=== PATIENT | male | born 1985 | race Caucasian/White ===

== ENCOUNTER 2019-12-16 20:17 | Inpatient (IN) | payer SELFPAY ==
[2019-12-16 20:26] VITALS: BP 143/110; PULSE 88; RESP 18; TEMP 36.7; O2SAT 98; BMI 22.4
--- NOTE | 2019-12-16 20:43 | ED_ITS ---
HPI - Psych General: Chief Complaint: Psychiatric Symptoms Stated Complaint: SI Time Seen by Provider: 12/16/19 20:35 History of Present Illness: HPI Narrative: Patient comes in with complaints that he try to hang himself this afternoon. His mom stopped him from himself she had noose around his neck but did not complete the task obviously. He has had multiple attempts in the past he says. says he is very depressed. He does ongoing living MD complaint: suicidal ideation and feels depressed Onset (ago): year(s) Duration: constant History of same: Yes Relieving factors: none Context: recent drug abuse (Smokes marijuana daily) Associated psychiatric symptoms: depression Associated symptoms: Reports depression Treatments prior to arrival: none If self harm: admits thoughts of self harm, has plan and has acted on plan Details of plan: Hanging himself with a rope Review of Systems Const: Denies: fever(s), chills or body aches Eyes: Denies: change in vision or blurry vision ENMT: Denies: throat pain or nasal congestion Card: Denies: chest pain or dyspnea on exertion Resp: Denies: dyspnea, productive cough or non-productive cough GI: Denies: abdominal pain, nausea or vomiting : Denies: difficulty urinating Musc: Denies: extremity pain Skin/Breast: Denies: rash Neuro: Denies: headache(s) Psych: Reports: depression and other (Tried to hang himself his afternoon his mom stopped him); Denies: anxiety Layton/Lymph: Denies: easy bruising Physical Exam Const: COMMON NORMALS: no acute distress, average body habitus and patient oriented x3 HENMT: COMMON NORMALS: normocephalic HEAD & SCALP: normal to inspection and normocephalic FACE & SINUS: normal facial exam Eye: COMMON NORMALS: conjunctivae normal GENERAL EYE: appearance normal, both eyes and all related structures CONJUNCTIVA: Yes conjunctivae normal Neck/C-Spine: COMMON NORMALS: no JVD Chest: COMMONS NORMALS: normal inspection of the chest Resp: COMMON NORMALS: normal respiratory effort and clear to auscultation bilaterally AUSCULTATION: clear to auscultation bilaterally Cardio: COMMON NORMALS: no JVD, regular rate and regular rhythm RATE: regular rate RHYTHM: regular rhythm GI: COMMON NORMALS: Normal to inspection, nondistended, normoactive bowel sounds present Extremity: COMMON NORMALS: normal to inspection and full ROM Neuro: COMMON NORMALS: patient oriented x3 Psych: COMMON NORMALS: Normal thought process present, cooperative and speech normal APPEARANCE: Yes grossly normal ATTITUDE: Yes Other attitude/behavior findings present (Psych) (Emotional) ACTIVITY/MOTOR BEHAVIOR: Yes Avoids eye contact (attititude/behavior) SPEECH: Yes normal speech MOOD & AFFECT: Yes depressed mood THOUGHT PROCESS: Normal thought process present MEMORY/COGNITION: Yes memory grossly intact INSIGHT: Good insight present (Psych) Coding Level of Care Code ED Anesthesiology Technologist for Delmis Thompson
[2019-12-16 20:47] LABS: Add Urine Microscopic? NO
[2019-12-16 20:52] LABS: Basophils # 0.1 10^3/uL (0.0-0.1); Basophils % 0.9 %; Eosinophils # 0.3 10^3/uL (0.0-0.8); Eosinophils % 3.5 %; Hematocrit 46.5 % (42.0-52.0); Hemoglobin 15.5 g/dL (11.7-16.6); Lymphocytes # 3.7 10^3/uL (0.8-4.8); Lymphocytes % 48.9 %; Mean Corpuscular HGB Conc 33.3 g/dL (30.0-36.0); Mean Corpuscular Hemoglobin 30.3 pg (28.0-34.0); Mean Corpuscular Volume 90.8 fL (80-94); Mean Platelet Volume 9.2 fL (7.4-10.4); Monocytes # 0.6 10^3/uL (0.2-0.9); Monocytes % 8.5 %; Neutrophils # 2.86 10^3/uL (1.8-7.7); Neutrophils % 38.1 %; Nucleated Red Blood Cells % 0 %; Platelet Count 385 10^3/cmm (130-400); Red Blood Count 5.12 10^6/uL (4.1-5.3); Red Cell Distribution Width 12.8 % (12.1-15.1); White Blood Count 7.5 10^3/uL (4.0-10.0)
[2019-12-16 20:53] LABS: Bilirubin Urine Neg (NEGATIVE); Blood Urine Neg (Negative); Glucose Urine UA Norm (Normal); Ketones Urine Negative (Negative); Leukocyte Esterase Urine Negative (Negative); Nitrate Urine Negative (Negative); Protein Urine Neg (Negative); Specific Gravity, Urine 1.015 (1.005-1.030); Urine Appearance Clear (CLEAR); Urine Color Yellow (Yellow); Urobilinogen Urine Norm (Negative); pH Urine 6 (5-7)
[2019-12-16 20:58] LABS: Amphetamines Screen Urine Positive (Negative); Barbiturates Screen Urine Negative (Negative); Benzodiazepines Screen Urine Positive (Negative); Cocaine Screen Urine Negative (Negative); Opiate Screen Urine Negative (Negative); PCP Screen Urine Negative (Negative); THC Screen Urine Positive (Negative)
[2019-12-16 21:17] LABS: Anion Gap 13.6 (5-19); Blood Urea Nitrogen 7 mg/dL (6-20); Calcium 8.1 mg/dL (8.5-10.5); Carbon Dioxide 27 mmol/L (22-29); Chloride 107 mmol/L (98-107); Glomerular Filtration Rate 109.4 mL/min (90-130); Glucose 110 mg/dL (65-115); Osmolality Calculated 294 mOsm/kg (285-295); Potassium 3.6 mmol/L (3.5-5.1); Sodium 144 mmol/L (136-145)
[2019-12-16 21:20] LABS: Salicylate < 0.3 mg/dL (3-10)
[2019-12-16 21:21] LABS: Alcohol Level 313 mg/dL (0-10)
[2019-12-16] MEDS: hyDROXYzine 25 mg Capsule PO (21:44)
[2019-12-16 21:49] VITALS: BP 148/111; PULSE 78; RESP 16; O2SAT 98
[2019-12-16 22:00] VITALS: BP 108/78; PULSE 85; RESP 19; TEMP 36.7; O2SAT 98
[2019-12-16] MEDS: trazodone 50 mg Tablet PO (22:34)
[2019-12-16] MEDS: hyDROXYzine 25 mg Capsule 50 MG PO (22:34)
[2019-12-16] MEDS: OLANZapine 5 mg ODT PO (22:34)
--- NOTE | 2019-12-16 22:35 | PC.NURSE ---
PRNs given @zyprexa zydis 5mg PO for anxiety visteril 50mg PO for anxiety and Trazodone 50mg PO for rest Pt is tearful on admit. Very anxious.
--- NOTE | 2019-12-16 22:56 | PC.NURSE ---
Patient is 34/M admit from the ED with SI/Depression. He attempted to hang himself today but mother intervened and removed the noose from his neck. Patient?s mother stated ?this patient has lost many family members over the last couple of years and he has not recovered from those losses.? Patient lost his girlfriend of 11 years in an unexpected and he found her beside him in their bed. According to his mother, this is when her ?son lost it?. During my assessment chelsieroberto, patient stated that he lost 5 family members over the last 4 ? years and recently found out that his () girlfriend had lied to him regarding both of his children?s paternity. He took a DNA test and it came to light that neither of the children he has been a father to are his biologically. He also stated that he has had past suicidal attempts involving putting a gun in his mouth. ?He just wants his life to end.? His mood has fluctuate from tearful to pacing angrily. Blood Glucose is 110 BAL is 313, DOA is positive for THC, Benzo?s, and Meth. When asked about his usage he stated that he uses THC to ?cope with his life? and Meth ?to feel better, light, like he don?t care.? He stated that he ?don?t like pills but on occasion when available he will use Xanax, to cope with his sucky life.?
[2019-12-17 06:00] VITALS: BP 143/95; PULSE 69; RESP 15; TEMP 36.5; O2SAT 99
--- NOTE | 2019-12-17 09:42 | P.HP_ITS ---
Providers/Chief Complaint Admitting Physician: Wolfgang Langston MD Referral Source: [facility] [place] [facility] Chief Complaint: SI HPI NPU History of Present Illness Lee Polanco is a 34 year old male who comes in with history of having tried to hang himself yesterday afternoon. His mom stopped him. He had a noose around his neck but did not complete the task. He has had multiple attempts in the past, he says. He is very depressed. The patient has lost many family members over the last couple of years and he has not recovered from those losses. The patient lost his girlfriend of 11 y ears in an unexpected . He found her beside him in the morning. This is when he lost it. All this was compounded by his discovery that his girlfriend had lied to him about his children's paternity. DNA tests show that the patient is not the biological father of his children. The patient has experimented with suicidal methods. He has put a gun into his mouth. He says, I just want my life to end. His polysubstance abuse has not helped. BAL is 313, DOA is positive for THC, benzos and meth. Review of Systems Narrative: Denies: fever(s), chills or body aches E: Denies: change in vision or blurry vision ENMT: Denies: throat pain or nasal congestion Card: Denies: chest pain or dyspnea on exertion Resp: Denies: dyspnea, productive cough or non-productive cough GI: Denies: abdominal pain, nausea or vomiting : Denies: difficulty urinating Musc: Denies: extremity pain Skin/Breast: Denies: rash Neuro: Denies: headache(s) Psych: Reports: depression and other (Tried to hang himself his afternoon his mom stopped him); Denies: anxiety Layton/Lymph: Denies: easy bruising Meds NPU Home Medications Medication Instructions Recorded Confirmed Last Taken Type No Known Home Medications 12/17/19 12/17/19 Unknown History Allergies Allergy/AdvReac Type Severity Reaction Status Date / Time No Known Allergies Allergy Verified 12/16/19 20:26 PFS NPU PFSH: Medical History (Updated 12/17/19 @ 09:53 by Josué Moses) 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 Mental Status Exam MSE Comments: thought process is free of racing, blocking or looseness of association, APPEARANCE: grossly normal ATTITUDE: the patient is cooperative. There are no bizarre behaviors mood is profoundly distraught and affect is tearful to agitated. He avoids eye contact. Speech is of normal rate and vol ume without dysarthria, aprosody or pressure. Cognitive function, including memory, orientation, reason, insight and judgment are intact. Nonetheless, he is unable to assure his safety in the outpatient environment. This is a high risk patient. Vitals/I&O/Wt Last Vital Signs Temp 97.7 F 12/17/19 06:00 Pulse 69 12/17/19 06:00 Resp 15 12/17/19 06:00 BP 143/95 12/17/19 06:00 Pulse Ox 99 12/17/19 06:00 Weight last 48 hrs Weight 175 lb Physical Exam Narrative: EXAM NARRATIVE: Const: COMMON NORMALS: no acute physical distress, average body habitus and patient oriented x3 HENMT: COMMON NORMALS: normocephalic HEAD & SCALP: normal to inspection and normocephalic FACE & SINUS: normal facial exam Eye: COMMON NORMALS: conjunctivae normal GENERAL EYE: appearance normal, both e and all related structures CONJUNCTIVA: conjunctivae normal Neck/C-Spine: COMMON NORMALS: no JVD Chest: COMMONS NORMALS: normal inspection of the chest Resp: COMMON NORMALS: normal respiratory effort and clear to auscultation bilaterally AUSCULTATION: clear to auscultation bilaterally Cardio: COMMON NORMALS: no JVD, regular rate and regular rhythm RATE: regular rate RHYTHM: regular rhythm GI: COMMON NORMALS: Normal to inspection, nondistended, normoactive bowel sounds present Extremity: COMMON NORMALS: normal to inspection and full ROM Neuro: COMMON NORMALS: patient oriented x3 Data NPU : 12/16/19 20:45 12/16/19 20:45 A&P Assessment and plan (1) 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 Pharmacotherapy, millieu and supportive therapy are indicated. He is going to need long-term supportive follow-up and medication management. Status: Acute (2) At high risk for suicide: Patient will be monitored for safety. Status: Acute Involuntary Hold Information 96 Hour Hold: 96 Hour Involuntary Admission: No Attestations NPU Medical Necessity Statement*: I anticipate 7 to 10 midnights additional hospitalization. Time Spent in Patient Care: Greater than 35 minutes (>than 50% of time spent in counselling and/or direct pt care on unit) . 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
[2019-12-17 14:00] VITALS: BP 161/107; PULSE 80; RESP 20; TEMP 37.1; O2SAT 98
--- NOTE | 2019-12-17 15:51 | PC.NURSE ---
blood pressure and Minipress Dr. Moses ordered minipress 1mg PO at bedtime and one dose now d/t blood pressure 161/107. this nurse educated patient on what minipress is used for, and the risk of having blood pressure this elevated. Patient verbalized understanding but refuses medication. nurse encouraged taking the medication however, patient continues to refuse. Dr. Moses notified.
[2019-12-17 21:32] VITALS: BP 161/102; PULSE 83; RESP 14; TEMP 37.2; O2SAT 97
--- NOTE | 2019-12-18 00:33 | PC.NURSE ---
The patient refused to take Prazosin.
[2019-12-18 06:00] VITALS: BP 129/74; PULSE 61; RESP 15; TEMP 36.9; O2SAT 95
[2019-12-18 13:55] VITALS: BP 158/111; PULSE 69; RESP 18; TEMP 37.2; O2SAT 100
--- NOTE | 2019-12-18 17:07 | PM.NPN ---
Subjective NPU Subjective: Interval history: Patient is far more awake today. He is also in much better spirits having had time to reflect on his situation. Things ain't as bad bad as I thought they were, he affirms. He realizes he nearly and the booze and meth are simply not worth it. He says he has a very supportive mom, he has 2 kids he loves even if they are not his biological offspring and he has a job where his boss says he can come back to work when he is ready. His work is obviously valued there. Medications: Reviewed: Yes Medication Review Details: Current Medications Acetaminophen (Tylenol) 650 mg PO Q4H PRN PRN Reason: MILD PAIN Benztropine Mesylate (Cogentin) 1 mg PO BID PRN PRN Reason: Mild Extrapyramidal symptoms Camphor/Menthol/Phenol (Blistex) 1 applic TOPICAL Q1H PRN PRN Reason: DRYNESS Diphenhydramine HCl (Benadryl) 50 mg IM ONCE PRN PRN Reason: Severe Extrapyramidal Symptoms Diphenhydramine HCl (Benadryl) 50 mg IM Q4H PRN PRN Reason: Severe Aggression Haloperidol (Haldol) 5 mg PO Q4H PRN PRN Reason: AGITATION Haloperidol Lactate (Haldol Inj) 5 mg IM Q4H PRN PRN Reason: Severe Aggression Hydroxyzine Pamoate (Vistaril) 50 mg PO Q6H PRN PRN Reason: ANXIETY Last Admin: 12/16/19 22:34 Dose: 50 mg Documented by: Loperamide HCl (Imodium Capsule) 2 mg PO Q6H PRN PRN Reason: DIARRHEA Lorazepam (Ativan) 2 mg IM Q4H PRN PRN Reason: Severe Aggression Nicotine (Nicoderm 21 Mg Patch) 1 patch TRANSDERMA DAILY PRN PRN Reason: NICOTINE WITHDRAWAL Nicotine Polacrilex (Nicorette) 2 mg BUCCAL Q2H PRN PRN Reason: NICOTINE WITHDRAWAL Olanzapine (Zyprexa Zydis) 5 mg PO Q4H PRN PRN Reason: Agitation/Psychosis Last Admin: 12/16/19 22:34 Dose: 5 mg Documented by: Ondansetron HCl (Zofran) 4 mg PO Q6H PRN PRN Reason: NAUSEA AND VOMITING Prazosin HCl (Minipress) 1 mg PO BEDTIME [facility] Last Admin: 12/17/19 20:42 Dose: Not Given Documented by: Trazodone HCl (Desyrel) 50 mg PO BEDTIME PRN PRN Reason: SLEEP Last Admin: 12/16/19 22:34 Dose: 50 mg Documented by: Mental Status Exam MSE Comments: This is a 34-year-old male who presents at his stated age. He is well-kempt, clean and neat. Mood is far more upbeat than previously observed. Affect is appropriate. Thought processes are integrated and free of any racing, blocking or looseness of association. Speech is of normal rate and volume, without dysarthria, aprosody or pressure. There is no evidence of psychosis, such as but not limited to hallucinations, delusions or ideas of reference. Cognitive functions are very good, including insight and judgment. He recognizes that substance abuse has nearly destroyed him and made nothing better, only everything worse. He affirmatively denies any suicidal or homicidal ideation, plan or intent. He is developing a stability in that will support his safety upon discharge. He is not ready just yet. Vitals/I&O/Wt Last Vital Signs Temp 98.9 F 12/18/19 13:55 Pulse 69 12/18/19 13:55 Resp 18 12/18/19 13:55 BP 158/111 12/18/19 13:55 Pulse Ox 100 12/18/19 13:55 Weight last 48 hrs Weight 175 lb Physical Exam Narrative: EXAM NARRATIVE: Const: COMMON NORMALS: no acute physical distress, average body habitus and patient oriented x3 HENMT: COMMON NORMALS: normocephalic HEAD & SCALP: normal to inspection and normocephalic FACE & SINUS: normal facial exam Eye: COMMON NORMALS: conjunctivae normal GENERAL EYE: appearance normal, both e and all related structures CONJUNCTIVA: conjunctivae normal Neck/C-Spine: COMMON NORMALS: no JVD Chest: COMMONS NORMALS: normal inspection of the chest Resp: COMMON NORMALS: normal respiratory effort and clear to auscultation bilaterally AUSCULTATION: clear to auscultation bilaterally Cardio: COMMON NORMALS: no JVD, regular rate and regular rhythm RATE: regular rate RHYTHM: regular rhythm GI: COMMON NORMALS: Normal to inspection, nondistended, normoactive bowel sounds present Extremity: COMMON NORMALS: normal to inspection and full ROM Neuro: COMMON NORMALS: patient oriented x3 Data NPU : 12/16/19 20:45 12/16/19 20:45 A&P Assessment and plan (1) 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 The risks to him is declining. He has decided to let it be. Status: Acute Involuntary Hold Information 96 Hour Hold: 96 Hour Involuntary Admission: No Attestations NPU Medical Necessity Statement*: I anticipate 3-5 midnights additional stay Time Spent in Patient Care: Greater than 35 minutes (>than 50% of time spent in counselling and/or direct pt care on unit). 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
[2019-12-18 21:14] VITALS: BP 149/87; PULSE 68; RESP 20; TEMP 37.2; O2SAT 96
[2019-12-19 06:00] VITALS: BP 159/88; PULSE 63; RESP 20; TEMP 36.7; O2SAT 98
[2019-12-19 14:00] VITALS: BP 149/102; PULSE 79; RESP 18; TEMP 37; O2SAT 100
--- NOTE | 2019-12-19 14:49 | PM.NPN ---
Subjective NPU Subjective: Interval history: Patient is agitated today. He says I did not see him soon enough. He wants to sign out AMA reviewed the documentation regarding his suicidality and all the stressors he is facing, his drinking, his substance abuse, etc. I told him that, with this information, I had the authority and a duty to file 96-hour paper work for involuntary hospitalization. I told him I did not want to do that and he set forth his arguments and I set forth mine. We were civil and polite. He he perceived that I had no choice but to undertake to protect him from his own impulsiveness. Perhaps this mood swings signifies bipolar disease. My successor will determine this. He elects to remain voluntarily and I am prepared to fill out the appropriate paperwork if he elects to sign out AMA. Medications: Reviewed: Yes Medication Review Details: Current Medications Acetaminophen (Tylenol) 650 mg PO Q4H PRN PRN Reason: MILD PAIN Benztropine Mesylate (Cogentin) 1 mg PO BID PRN PRN Reason: Mild Extrapyramidal symptoms Camphor/Menthol/Phenol (Blistex) 1 applic TOPICAL Q1H PRN PRN Reason: DRYNESS Diphenhydramine HCl (Benadryl) 50 mg IM ONCE PRN PRN Reason: Severe Extrapyramidal Symptoms Diphenhydramine HCl (Benadryl) 50 mg IM Q4H PRN PRN Reason: Severe Aggression Haloperidol (Haldol) 5 mg PO Q4H PRN PRN Reason: AGITATION Haloperidol Lactate (Haldol Inj) 5 mg IM Q4H PRN PRN Reason: Severe Aggression Hydroxyzine Pamoate (Vistaril) 50 mg PO Q6H PRN PRN Reason: ANXIETY Last Admin: 12/16/19 22:34 Dose: 50 mg Documented by: Loperamide HCl (Imodium Capsule) 2 mg PO Q6H PRN PRN Reason: DIARRHEA Lorazepam (Ativan) 2 mg IM Q4H PRN PRN Reason: Severe Aggression Nicotine (Nicoderm 21 Mg Patch) 1 patch TRANSDERMA DAILY PRN PRN Reason: NICOTINE WITHDRAWAL Nicotine Polacrilex (Nicorette) 2 mg BUCCAL Q2H PRN PRN Reason: NICOTINE WITHDRAWAL Olanzapine (Zyprexa Zydis) 5 mg PO Q4H PRN PRN Reason: Agitation/Psychosis Last Admin: 12/16/19 22:34 Dose: 5 mg Documented by: Ondansetron HCl (Zofran) 4 mg PO Q6H PRN PRN Reason: NAUSEA AND VOMITING Prazosin HCl (Minipress) 1 mg PO BEDTIME [facility] Last Admin: 12/18/19 22:01 Dose: Not Given Documented by: Trazodone HCl (Desyrel) 50 mg PO BEDTIME PRN PRN Reason: SLEEP Last Admin: 12/16/19 22:34 Dose: 50 mg Documented by: Mental Status Exam MSE Comments: This is a 34-year-old male who presents at his stated age. He is well-kempt, clean and neat. Mood is agitated. Affect is angry. Thought processes are integrated but slightly racing. There is no blocking or looseness of association. Speech is mildly pressured, without dysarthria, or aprosody. There is no evidence of psychosis, such as but not limited to hallucinations, delusions or ideas of reference. Cognitive functions are very good. He recognizes that substance abuse has nearly destroyed him and made nothing better, only everything worse. He affirmatively denies any suicidal or homicidal ideation, plan or intent. Insight and judgment are still fragile after all. They are certainly not sufficient for his safety. Vitals/I&O/Wt Last Vital Signs Temp 98.1 F 12/19/19 06:00 Pulse 63 12/19/19 06:00 Resp 20 H 12/19/19 06:00 BP 159/88 12/19/19 06:00 Pulse Ox 98 12/19/19 06:00 Data NPU : 12/16/19 20:45 12/16/19 20:45 Involuntary Hold Information 96 Hour Hold: 96 Hour Involuntary Admission: No Attestations NPU Medical Necessity Statement*: I expect this patient will require 5-7 midnights additional hospitalization. He may require a 96-hour petition Time Spent in Patient Care: Greater than 35 minutes (>than 50% of time spent in counselling and/or direct pt care on unit). Coding Level of Care Code Acute Network Control Operators Supervisor for Delmis Thompson
[2019-12-19 20:08] VITALS: BP 148/98; PULSE 75; RESP 19; TEMP 37.2; O2SAT 98
[2019-12-19] MEDS: trazodone 50 mg Tablet PO (21:40)
[2019-12-19] MEDS: hyDROXYzine 25 mg Capsule 50 MG PO (21:40)
[2019-12-19] MEDS: prazosin 1 mg Capsule PO (21:41)
[2019-12-20 06:00] VITALS: BP 150/83; PULSE 69; RESP 16; TEMP 36.6; O2SAT 97
[2019-12-20 14:00] VITALS: BP 147/98; PULSE 79; RESP 18; TEMP 37.3; O2SAT 98
[2019-12-20 18:16] VITALS: BP 147/98; PULSE 79; RESP 18; TEMP 37.3; O2SAT 98
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
[2019-12-20] MEDS: prazosin 1 mg Capsule PO (19:35)
[2019-12-20] MEDS: nicotine 2 mg Gum BUCCAL (19:35)
--- NOTE | 2019-12-20 19:35 | PC.NURSE ---
pazosin given early due to discharge. Given at 193
== END 2019-12-20 19:30 | disposition home or self-care (01) | DRG 882 ==
LOC: ER 20:37 → NP 21:44
PROVIDERS: Nurse Practitioner Family; Admitting Provider Psychiatry & Neurology Psychiatry; Visit Provider Psychiatry & Neurology Psychiatry
DX: F43.29 Adjustment disorder with other symptoms (principal); F32.9 Major depressive disorder, single episode, unspecified; Z91.5 Personal history of self-harm
CPT/HCPCS: 12345; 80048; 80306; 80307; 81003; 85025; 99284

== ENCOUNTER 2022-06-17 14:13 | Inpatient (IN) | payer MEDICAID, SELFPAY ==
--- NOTE | 2022-06-17 14:36 | PC.PHAR ---
pt states he takes no rx or otc medications-pt states he thinks he use to take prazosin 1mg hs rx written 12/20/2019
[2022-06-17 14:38] VITALS: BP 133/87; PULSE 164; RESP 18; O2SAT 96; BMI 25.4
[2022-06-17 15:37] LABS: Basophils % 0.4 %; Eosinophils # 0.1 10^3/uL (0.0-0.8); Hematocrit 43.4 % (42.0-52.0); Hemoglobin 14.6 g/dL (11.7-16.6); Lymphocytes # 1.4 10^3/uL (0.8-4.8); Lymphocytes % 13.2 %; Mean Corpuscular HGB Conc 33.6 g/dL (30.0-36.0); Mean Corpuscular Hemoglobin 30.9 pg (28.0-34.0); Mean Corpuscular Volume 91.8 fl (80-94); Mean Platelet Volume 9.3 fL (7.4-10.4); Monocytes # 1.5 10^3/uL (0.2-0.9); Monocytes % 14.6 %; Neutrophils # 7.46 10^3/uL (1.8-7.7); Neutrophils % 70.5 %; Nucleated Red Blood Cells % 0 %; Platelet Count 311 10^3/cmm (130-400); Red Blood Count 4.73 10^6/uL (4.1-5.3); Red Cell Distribution Width 13.7 % (12.1-15.1); White Blood Count 10.6 10^3/uL (4.0-10.0)
[2022-06-17 16:00] LABS: Alanine Aminotransferase 50 U/L (0-41); Albumin Level 4.5 g/dL (3.5-5.2); Alkaline Phosphatase 102 U/L (40-130); Anion Gap 13.7 (5-19); Aspartate Amino Transferase 35 U/L (0-40); Blood Urea Nitrogen 14 mg/dL (6-20); Calcium 9.4 mg/dL (8.5-10.5); Carbon Dioxide 28 mmol/L (22-29); Chloride 97 mmol/L (98-107); Globulin 2.7 g/dL (1.3-4.6); Glomerular Filtration Rate 94.4 mL/min (90-130); Glucose 81 mg/dL (65-115); Osmolality Calculated 280 mOsm/kg (285-295); Potassium 3.7 mmol/L (3.5-5.1); Sodium 135 mmol/L (136-145); Total Bilirubin 1.1 mg/dL (0.15-1.2); Total Protein 7.2 g/dL (6.6-8.7)
[2022-06-17 16:03] LABS: Acetaminophen < 5.0 ug/mL (10-30); Salicylate < 0.3 mg/dL (3-10)
[2022-06-17] MEDS: acetaminophen 500 mg Tablet 1000 MG PO (17:10)
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
[2022-06-17 21:00] LABS: Alcohol Level < 10 mg/dL (0-10)
[2022-06-17 21:30] VITALS: BP 131/93; PULSE 76; RESP 18; O2SAT 99
[2022-06-17 21:45] VITALS: BP 132/92; PULSE 91; RESP 20; TEMP 37.1; O2SAT 98
[2022-06-17 22:35] VITALS: BP 132/92; PULSE 91; RESP 20; TEMP 37.1; O2SAT 98
[2022-06-17] MEDS: acetaminophen 325 mg Tablet 650 MG PO (23:05)
[2022-06-17] MEDS: OLANZapine 5 mg ODT PO (23:06)
[2022-06-17] MEDS: LORazepam 2 mg Tablet PO (23:06)
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
[2022-06-18 06:00] VITALS: BP 132/93; PULSE 90; RESP 20; TEMP 36.9; O2SAT 94
[2022-06-18] MEDS: LORazepam 2 mg Tablet PO ×2 (08:47→22:43)
[2022-06-18] MEDS: multivitamin therapeutic Tablet 1 TAB PO (08:48)
[2022-06-18] MEDS: folic acid 1 mg Tablet PO (08:48)
[2022-06-18] MEDS: nicotine 21 mg Patch 1 PATCH TRANSDERMA (08:48)
[2022-06-18] MEDS: thiamine 100 mg Tablet PO (08:48)
--- NOTE | 2022-06-18 08:56 | P.NPUHP_ITS ---
Providers/Chief Complaint Admitting Physician: Wolfgang Langston MD Chief Complaint: MHE HPI NPU History of Present Illness Lee Polanco is a 36 year old male who presented to the emergency department with the following report: Chief Complaint: Psychiatric Symptoms Stated Complaint: MHE Time Seen by Provider: 06/17/22 14:31 History of Present Illness: 36-year-old male presents emergency room complaining of being depressed and having suicidal thoughts. He denies a specific plan. A lot of this stems from an issue with regarding his family there is a allegation made about misconduct between him and his daughter and although he states it was fully disputed it lingers on. He has used meth in the past he does states last time he used meth was 2 to 3 days ago though he appears to be mildly under the influence at this time. He is not misbehaving he is cooperative and nonviolent. complaint: suicidal ideation and feels depressed Onset (ago): month(s) Duration: constant History of same: Yes Relieving factors: none Exacerbating factors: none Context: recent drug abuse Associated psychiatric symptoms: depression and suicidal ideation Associated symptoms: Reports depression and suicidal ideation Treatments prior to arrival: none If self harm: admits thoughts of self harm He was admitted to the neuropsychiatric unit for definitive treatment of those issues. He presents today reporting that he is not currently on medications but that he had a minor breakdown secondary to recent relapse on methamphetamine. He has had 1 inpatient hospitalization an excerpt of which is included below for context. He has not had significant outpatient services. He reports smoking about a pack of cigarettes a day, drinking alcohol regularly but not like he did in the past. He reports he has marijuana regularly but not daily. He denies cocaine methamphetamine and opiates but does report that he does have methamphetamine once a month and usually it is under control but occasionally he gets out of control which likely led to his current situation. He denies ever going to a rehab or having a DUI or any specific charges. Reports that his drug use started years ago when he was having depression and anxiety and ended up using substances more than was good to deal with those symptoms and then has had different times in his life where his use has gotten out of control. He reports that his last use was a few days ago but he reports that there were issues with legal challenges as well as needing to pay his bills and things of that nature some conflicts with family will let down making some bad choices from the standpoint of his use. He reports that he is gathered his thoughts pretty much now and he does not want to stay here over the weekend. He reports that he is better and does not know that he needs to stay. He was unwilling to make any commitment to sober living treatment or any other kind of treatment. We discussed the importance of recovery treatment for sobriety and he was espousing the I do not want to do it anymore so I think I am better approach. Per his 12/20/2019 [facility] inpatient psychiatric evaluation: SI Brief History: History of Present Illness Lee Polanco is a 34 year old male who comes in with history of having tried to hang himself yesterday afternoon. His mom stopped him. He had a noose around his neck but did not complete the task. He has had multiple attempts in the past, he says. He is very depressed. The patient has lost many family members over the last couple of years and he has not recovered from those losses. The patient lost his girlfriend of 11 years in an unexpected . He found her beside him in the morning. This is when he lost it. All this was compounded by his discovery that his girlfriend had lied to him about his children's paternity. DNA tests show that the patient is not the biological father of his children. The patient has experimented with suicidal methods. He has put a gun into his mouth. He says, I just want my life to end. His polysubstance abuse has not helped. BAL is 313, DOA is positive for THC, benzos and meth. Review of Systems Narrative: Denies: fever(s), chills or body aches E: Denies: change in vision or blurry vision ENMT: Denies: throat pain or nasal congestion Card: Denies: chest pain or dyspnea on exertion Resp: Denies: dyspnea, productive cough or non-productive cough GI: Denies: abdominal pain, nausea or vomiting : Denies: difficulty urinating Musc: Denies: extremity pain Skin/Breast: Denies: rash Neuro: Denies: headache(s) Psych: Reports: depression and other (Tried to hang himself his afternoon his mom stopped him); Denies: anxiety Layton/Lymph: Denies: easy bruising Meds NPU Home Medications Medication Instructions Recorded Confirmed Last Taken Type No Known Home Medications 12/17/19 12/17/19 Unknown History Allergies Allergy/AdvReac Type Severity Reaction Status Date / Time No Known Allergies Allergy Verified 12/16/19 20:26 PFS NPU PFS: Medical History (Updated 12/17/19 @ 09:53 by Josué Moses) 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 Hospital Course Hospital Course Lee presented to the emergency room endorsing that he tried to hang himself and that his mom stopped him. He endorsed multiple attempts, in the past, and endorsed depression ad suicidal ideation. He has been smoking marijuana and also had a UDS that was also noteworthy for benzodiazepine, amphetamines, and a blood alcohol level of 313. He was admitted to the neuropsychiatric unit for definitive treatment of those issues. On the unit, he quickly acclimated to the individual, group, and milieu therapies provided. He was started on Vistaril and Prazosin, and he tolerated those medications well. He was not interested in staring something more aggressive for his depression, because he felt that it was more situational. The situational issues involve that his significant other of eleven years unexpectedly, and in the process of managing his overall circumstances with family, and her family, it became clear that his children were not biologically his, so she had been lying to him about that during their lives. His response to these grief reactions, loss of perceived paternity, and things of that nature, led to him feeling very low, but he wants to work on it without being overly medicated. He showed positive response to the therapeutic milieu, as well as those medications to assist with sleep and anxiety. He was kept an additional day so that this internal communications writer could see him to ultimately serve as a second opinion, as the previous doctor had considered putting him on a 96-hour hold, as he wanted to leave, but my evaluation identified certainly pain from a situation, but that he appeared to lack credible lethality; but he was in some pain and needed outpatient follow up which was recommend and he was assisted in obtaining. During the hospitalization, the patient had routine laboratory studies which were within normal limits, except for a few outliers. Additionally, the patient had a general medical evaluation which was within normal limits and revealed no new acute processes. Discharge Summary At the time of discharge the patient denied all lethality, was absent psychosis, and mood and anxiety were well managed. The patient endorsed a plan to avoid all drugs of abuse and to follow-up with outpatient services, as recommended. The patient was evaluated and deemed to be absent credible lethality, and had achieved the maximum benefit from an inpatient hospitalization, and so he was discharged. 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 No abnormal movements except for mild psychomotor agitation. Consistent with tweaking. Cooperative with exam and mild distress. Speech was slightly increased rate normal volume. Mood described as a little better, affect kinetic. Thought process organized. Thought content: Patient denied suicidal or homicidal ideation, there were no delusions reported or noted, he denies any auditory or visual hallucinations. Attention and concentration were intact and memory appeared reliable but none were formally tested. He is alert and oriented x3. Insight and judgment are limited. Impulse control limited. Vitals/I&O/Wt Last Vital Signs Temp 98.4 F 06/18/22 06:00 Pulse 90 06/18/22 06:00 Resp 20 H 06/18/22 06:00 BP 132/93 06/18/22 06:00 Pulse Ox 94 06/18/22 06:00 O2 Del Method 06/17/22 22:35 Weight last 48 hrs Weight 92.533 kg Data NPU 06/17/22 15:05 06/17/22 15:05 A&P Assessment and plan (1) Suicidal ideation: (2) Alcohol abuse: (3) Methamphetamine abuse: (4) Psychosis: Plan This is a 36-year-old white male with a long history of addiction and some mental health challenges who presents after a recent relapse with strange behaviors including some psychosis who wanted to come to the hospital to avoid hurting himself and to gather his thoughts. Not currently interested in medi cation. 1. Continue current medications.? Attempt to get him to try an antipsychotic. 2. Encourage individual, group and milieu therapy 3. Continue q-15 minute check for safety 4. Recommend sober living treatment at the highest level of care to which the patient is willing to commit. 5. Patient voluntary and reporting a desire to not be here through the weekend. We will monitor for safety and consider discharge in the next 48 hours. Involuntary Hold Information 96 Hour Hold: 96 Hour Involuntary Admission: No Attestations NPU Medical Necessity Statement*: Inpatient hospitalization is medically necessary and the clinically appropriate intervention at this time.? We will basim tor/initiate medications and make changes as indicated.? He will be in the hospital for over 2 midnights.? Likely length of stay 2-4 days. Coding Level of Care Code Acute Code for g Fwd Diagnoses Suicidal ideation R45.851 Alcohol abuse F10.10 Methamphetamine abuse F15.10 Psychosis F29
[2022-06-18 09:32] LABS: Amphetamines Screen Urine Positive (Negative); Barbiturates Screen Urine Negative (Negative); Benzodiazepines Screen Urine Positive (Negative); Cocaine Screen Urine Negative (Negative); Opiate Screen Urine Negative (Negative); PCP Screen Urine Negative (Negative); THC Screen Urine Positive (Negative)
--- NOTE | 2022-06-18 09:54 | PC.OT ---
OT Jennifer Attempted - Patient in bed asleep at time of contact, asked this therapist to try again later because the patient was tired.
[2022-06-18 14:00] VITALS: BP 125/83; PULSE 75; RESP 18; TEMP 36.8; O2SAT 99
[2022-06-18] MEDS: acetaminophen 325 mg Tablet 650 MG PO ×2 (16:15→22:43)
[2022-06-18 22:00] VITALS: BP 141/101; PULSE 97; RESP 16; TEMP 36.7; O2SAT 95
[2022-06-18] MEDS: trazodone 50 mg Tablet PO (22:44)
[2022-06-19 06:00] VITALS: BP 130/86; PULSE 88; RESP 18; TEMP 36.4; O2SAT 99
[2022-06-19] MEDS: hyDROXYzine 25 mg Capsule 50 MG PO (09:09)
[2022-06-19] MEDS: thiamine 100 mg Tablet PO (09:09)
[2022-06-19] MEDS: folic acid 1 mg Tablet PO (09:09)
[2022-06-19] MEDS: multivitamin therapeutic Tablet 1 TAB PO (09:09)
[2022-06-19 14:00] VITALS: BP 120/73; PULSE 81; RESP 20; TEMP 36.8; O2SAT 99
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
[2022-06-19] MEDS: acetaminophen 325 mg Tablet 650 MG PO (16:58)
[2022-06-19 17:09] VITALS: BP 120/73; PULSE 81; RESP 20; TEMP 36.8; O2SAT 99
--- NOTE | 2022-06-21 09:06 | PC.OT ---
OT EVALUATION ORDERS RECEIVED. PATIENT D/C BEFORE EVALUATION COULD BE COMPLETED.
== END 2022-06-19 18:24 | disposition home or self-care (01) | DRG 897 ==
LOC: ER 14:31 → NP 16:42
PROVIDERS: Admitting Provider Psychiatry & Neurology Psychiatry; Emergency Provider Family Medicine; Visit Provider Psychiatry & Neurology Psychiatry
DX: F15.159 Other stimulant abuse with stimulant-induced psychotic disorder, unspecified (principal); R45.851 Suicidal ideations; F32.A Depression, unspecified; F12.10 Cannabis abuse, uncomplicated; F10.10 Alcohol abuse, uncomplicated; F17.210 Nicotine dependence, cigarettes, uncomplicated
CPT/HCPCS: 36415; 80053; 80306; 80307; 85025; 99238; 99285

== ENCOUNTER 2022-07-12 17:55 | Inpatient (IN) | payer BC, SELFPAY ==
[2022-07-12 18:02] VITALS: BP 149/98; PULSE 104; RESP 16; TEMP 36.7; O2SAT 91; BMI 22.5
[2022-07-12 18:31] LABS: Add Urine Microscopic? NO; Charge for UA Resulting for Rev
--- NOTE | 2022-07-12 18:32 | ED.C_ITS ---
HPI - Psych General: Chief Complaint: Psychiatric Symptoms Stated Complaint: PSYCH EVAL Time Seen by Provider: 07/12/22 18:04 Source: patient and police Mode of arrival: ambulatory History of Present Illness: 28-year-old male came in with police he states that he does have a history of alcoholism he has methamphetamine abuse in the past he adamantly denies any use over the last month he states over the last 2 days he been having hallucinations along with suicidal thoughts along with the plan he states he has a plan to drink himself to . He was admitted here 1 month ago he denies any worsening proving factors. 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 Methamphetamine abuse Social History (Updated 07/12/22 @ 18:34 by Massimo Lowe MD) Alcohol intake: current Physical Exam Const: COMMON NORMALS: no acute distress, patient oriented x3 and healthy appearing HENMT: COMMON NORMALS: normocephalic and atraumatic HEAD & SCALP: normocephalic and atraumatic Eye: COMMON NORMALS: Equal, round and reactive pupils present and EOMs intact bilaterally PUPIL: Yes Equal, round and reactive pupils present Neck/C-Spine: COMMON NORMALS: full ROM and supple Chest: COMMONS NORMALS: normal inspection of the chest and normal palpation of entire chest wall Resp: COMMON NORMALS: normal respiratory effort, No retractions, No use of accessory muscles and clear to auscultation bilaterally AUSCULTATION: clear to auscultation bilaterally Cardio: COMMON NORMALS: regular rate, regular rhythm and No murmurs present (Cardio) RATE: regular rate RHYTHM: regular rhythm GI: COMMON NORMALS: Normal to inspection, nondistended, normoactive bowel sounds present, Soft to palpation, non-tender and no masses PALPATION: Yes Soft to palpation Extremity: COMMON NORMALS: normal to inspection and full ROM Neuro: COMMON NORMALS: patient oriented x3, moves all extremities and no focal motor deficits Psych: COMMON NORMALS: mental status grossly normal, Normal thought process present and cooperative THOUGHT PROCESS: Normal thought process present THOUGHT CONTENT: Yes Suicidality present and Yes Hallucination(s) present Skin: COMMON NORMALS: no rashes or lesions noted and no wounds GENERAL SKIN EXAM: no rashes or lesions noted Course Vital Signs: Vital signs: Vital Signs Temperature 98.1 F 07/12/22 18:02 Pulse Rate 104 H 07/12/22 18:02 Respiratory Rate 20 H 07/12/22 18:49 Blood Pressure 149/98 07/12/22 18:02 Pulse Oximetry 91 07/12/22 18:02 Oxygen Delivery Me thod 07/12/22 18:02 MDM - Psych Medical Decision Making Patient presents for suicidal ideations along with hallucinations I spoke to Dr. Langston patient is medically cleared and will admit at this time. Lab Data 07/12/22 18:23 07/12/22 18: Laboratory Results WBC 7.3 10^3/uL (4.0-10.0) 07/12/22 18: RBC 5.27 10^6/uL (4.1-5.3) 07/12/22 18: Hgb 16.2 g/dL (11.7-16.6) 07/12/22 18: Hct 47.3 % (42.0-52.0) 07/12/22 18: MCV 89.8 fl (80-94) 07/12/22 18: MCH 30.7 pg (28.0-34.0) 07/12/22 18: MCHC 34.2 g/dL (30.0-36.0) 07/12/22 18: RDW 13.4 % (12.1-15.1) 07/12/22 18: Plt Count 315 10^3/cmm (130-400) 07/12/22 18: MPV 9.8 fL (7.4-10.4) 07/12/22 18: Neut % (Auto) 45.2 % 07/12/22 18: Lymph % (Auto) 40.9 % 07/12/22 18: [place] % (Auto) 10.2 % 07/12/22 18: Eos % (Auto) 2.6 % 07/12/22 18: Baso % (Auto) 0.8 % 07/12/22 18: Neut # (Auto) 3.31 10^3/uL (1.8-7.7) 07/12/22 18:23 Lymph # (Auto) 3.0 10^3/uL (0.8-4.8) 07/12/22 18: [place] # (Auto) 0.8 10^3/uL (0.2-0.9) 07/12/22 18:23 Eos # (Auto) 0.2 10^3/uL (0.0-0.8) 07/12/22 18: Baso # (Auto) 0.1 10^3/uL (0.0-0.1) 07/12/22 18: Nucleated RBC % (auto) 0 % 07/12/22 18: Nucleated RBCs # 0.0 /100WBC 07/12/22 18: Sodium 136 mmol/L (136-145) 07/12/22 18: Potassium 3.6 mmol/L (3.5-5.1) 07/12/22 18: Chloride 100 mmol/L (98-107) 07/12/22 18: Carbon Dioxide 23 mmol/L (22-29) 07/12/22 18: Anion Gap 16.6 (5-19) 07/12/22 18: BUN 12 mg/dL (6-20) 07/12/22 18: Creatinine 0.8 mg/dL (0.7-1.2) 07/12/22 18: GFR Calculation 108.2 mL/min (90-130) 07/12/22 18: Glucose 86 mg/dL (65-115) 07/12/22 18: Calculated Osmolality 281 mOsm/kg (285-295) L 07/12/22 18: Calcium 8.5 mg/dL (8.5-10.5) 07/12/22 18: Total Bilirubin 0.4 mg/dL (0.15-1.2) 07/12/22 18: AST 25 U/L (0-40) 07/12/22 18: ALT 33 U/L (0-41) 07/12/22 18: Alkaline Phosphatase 87 U/L (40-130) 07/12/22 18: Total Protein 7.7 g/dL (6.6-8.7) 07/12/22 18: Albumin 5.0 g/dL (3.5-5.2) 07/12/22 18:23 Globulin 2.7 g/dL (1.3-4.6) 07/12/22 18:23 TSH 0.57 uIU/mL (0.27-4.20) 07/12/22 18:23 Urine Color Light yellow (Yellow) 07/12/22 18:07 Urine Appearance Clear (CLEAR) 07/12/22 18:07 Urine pH 6 (5-7) 07/12/22 18:07 Ur Specific [place] 1.010 (1.005-1.030) 07/12/22 18:07 Urine Protein Neg (Negative) 07/12/22 18:07 Urine Glucose (UA) Norm (Normal) 07/12/22 18:07 Urine Ketones Negative (Negative) 07/12/22 18:07 Urine Blood Neg (Negative) 07/12/22 18:07 Urine Nitrate Negative (Negative) 07/12/22 18:07 Urine Bilirubin Neg (Negative) 07/12/22 18:07 Urine Urobilinogen Norm mg/dL (Negative) 07/12/22 18:07 Ur Leukocyte Esterase Negative (Negative) 07/12/22 18:07 Salicylates < 0.3 mg/dL (3-10) L 07/12/22 18:23 Urine Opiates Screen Negative ng/mL (Negative) 07/12/22 18:07 Acetaminophen < 5.0 ug/mL (10-30) L 07/12/22 18:23 Ur Barbiturates Screen Negative ng/mL (Negative) 07/12/22 18:07 Ur Phencyclidine Scrn Negative ng/mL (Negative) 07/12/22 18:07 Ur Amphetamines Screen Negative ng/mL (Negative) 07/12/22 18:07 U Benzodiazepines Scrn Negative ng/mL (Negative) 07/12/22 18:07 Urine Cocaine Screen Negative ng/mL (Negative) 07/12/22 18:07 U Marijuana (THC) Screen Negative ng/mL (Negative) 07/12/22 18:07 Ethyl Alcohol 321 mg/dL (0-10) H* 07/12/22 18:23 Discharge Plan Discharge Patient Disposition: Admitted As Inpatient Admit Provider: Wolfgang Langston Clinical Impression: Psychosis, Alcohol abuse, Suicidal ideation Condition: Stable Coding Level of Care Code ED [facility] for Delmis Thompson
[2022-07-12] MEDS: acetaminophen 325 mg Tablet 650 MG PO ×2 (18:34→22:26)
[2022-07-12 18:46] LABS: Basophils # 0.1 10^3/uL (0.0-0.1); Basophils % 0.8 %; Eosinophils # 0.2 10^3/uL (0.0-0.8); Eosinophils % 2.6 %; Hematocrit 47.3 % (42.0-52.0); Hemoglobin 16.2 g/dL (11.7-16.6); Lymphocytes % 40.9 %; Mean Corpuscular HGB Conc 34.2 g/dL (30.0-36.0); Mean Corpuscular Hemoglobin 30.7 pg (28.0-34.0); Mean Corpuscular Volume 89.8 fl (80-94); Mean Platelet Volume 9.8 fL (7.4-10.4); Monocytes # 0.8 10^3/uL (0.2-0.9); Monocytes % 10.2 %; Neutrophils # 3.31 10^3/uL (1.8-7.7); Neutrophils % 45.2 %; Nucleated Red Blood Cells % 0 %; Platelet Count 315 10^3/cmm (130-400); Red Blood Count 5.27 10^6/uL (4.1-5.3); Red Cell Distribution Width 13.4 % (12.1-15.1); White Blood Count 7.3 10^3/uL (4.0-10.0)
[2022-07-12 18:49] VITALS: RESP 20
[2022-07-12 18:51] LABS: Bilirubin Urine Neg (Negative); Blood Urine Neg (Negative); Glucose Urine UA Norm (Normal); Ketones Urine Negative (Negative); Leukocyte Esterase Urine Negative (Negative); Nitrate Urine Negative (Negative); Protein Urine Neg (Negative); Urine Appearance Clear (CLEAR); Urine Color Light yellow (Yellow); Urobilinogen Urine Norm (Negative); pH Urine 6 (5-7)
[2022-07-12 19:10] LABS: Alanine Aminotransferase 33 U/L (0-41); Alkaline Phosphatase 87 U/L (40-130); Anion Gap 16.6 (5-19); Aspartate Amino Transferase 25 U/L (0-40); Blood Urea Nitrogen 12 mg/dL (6-20); Calcium 8.5 mg/dL (8.5-10.5); Carbon Dioxide 23 mmol/L (22-29); Chloride 100 mmol/L (98-107); Globulin 2.7 g/dL (1.3-4.6); Glomerular Filtration Rate 108.2 mL/min (90-130); Glucose 86 mg/dL (65-115); Osmolality Calculated 281 mOsm/kg (285-295); Potassium 3.6 mmol/L (3.5-5.1); Sodium 136 mmol/L (136-145); Thyroid Stimulating Hormone 0.57 uIU/mL (0.27-4.20); Total Bilirubin 0.4 mg/dL (0.15-1.2); Total Protein 7.7 g/dL (6.6-8.7)
[2022-07-12 19:12] LABS: Acetaminophen < 5.0 ug/mL (10-30); Salicylate < 0.3 mg/dL (3-10)
[2022-07-12 19:14] LABS: Alcohol Level 321 mg/dL (0-10)
[2022-07-12] MEDS: nicotine 21 mg Patch 1 PATCH TRANSDERMA (19:15)
[2022-07-12 19:25] LABS: Amphetamines Screen Urine Negative (Negative); Barbiturates Screen Urine Negative (Negative); Benzodiazepines Screen Urine Negative (Negative); Cocaine Screen Urine Negative (Negative); Opiate Screen Urine Negative (Negative); PCP Screen Urine Negative (Negative); THC Screen Urine Negative (Negative)
--- NOTE | 2022-07-12 20:04 | PC.NURSE ---
This RN and security served pt with copy of 96 [facility] Rights. Pt was receptive. All questions answered.
[2022-07-12 20:26] VITALS: PULSE 100; O2SAT 96
[2022-07-12] MEDS: LORazepam 2 mg/mL INJ 1 mL 1 MG IM (20:49)
[2022-07-12 21:05] VITALS: BP 124/91; PULSE 101; RESP 18; TEMP 36.9; O2SAT 96
[2022-07-12 21:56] VITALS: BP 124/91; PULSE 101; RESP 18; TEMP 36.9; O2SAT 96
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
[2022-07-13 06:00] VITALS: BP 122/82; PULSE 90; RESP 16; TEMP 36.3; O2SAT 96
[2022-07-13] MEDS: multivitamin therapeutic Tablet 1 TAB PO (08:33)
[2022-07-13] MEDS: thiamine 100 mg Tablet PO (08:33)
[2022-07-13] MEDS: nicotine 21 mg Patch 1 PATCH TRANSDERMA (08:33)
[2022-07-13] MEDS: folic acid 1 mg Tablet PO (08:33)
--- NOTE | 2022-07-13 11:13 | W.PM.NPUH&PS ---
Providers/Chief Complaint Admitting Physician: Wolfgang Langston MD Chief Complaint: PSYCH EVAL HPI NPU History of Present Illness Lee Polanco is a 36 year old male who presented to the emergency department with the following report: Chief Complaint: Psychiatric Symptoms Stated Complaint: PSYCH EVAL Time Seen by Provider: 07/12/22 18:04 Source: patient and police Mode of arrival: ambulatory History of Present Illness: 28-year-old male came in with police he states that he does have a history of alcoholism he has methamphetamine abuse in the past he adamantly denies any use over the last month he states over the last 2 days he been having hallucinations along with suicidal thoughts along with the plan he states he has a plan to drink himself to . He was admitted here 1 month ago he denies any worsening proving factors. Associated symptoms: Reports depression and suicidal ideation He was admitted to the neuropsychiatric unit for definitive treatment of those issues. He presents today reporting that he has been sober from methamphetamines since his last hospitalization but that he had began drinking beer Valium to stay away from hard liquor but then after some days of drinking beer went to the hard liquor which led to a binge was led to him having depression and more suicidal ideation. This his UDS was negative and he did present with a blood alcohol of 321. He reports that he has depression related to his baby's mother dying around his age and makes him think about her and dying and different things like that. We talked about the importance of his sobriety and keeping his mental health stable. We talked about the impact of alcohol on mood etc. We talked about him feeling his life with other activities and he reports that he is working and in jobs in his town. We talked about filling it up with activities appropriate for 36-year-old male including active treatment for his mental health and addiction issues. He seemed fairly ambivalent about this idea and seem to be focused on being here for a mental health break. We discussed, benefits and alternatives of reviewing medications for depression, anxiety and addiction prevention and he understood and agreed to consider these things as is documented in this note. He denies substantive changes since he was last hospitalized so an excerpt of his last discharge summary is included below for context. Per his 06/19/2022 [facility] inpatient psychiatric discharge summary: Discharge Diagnosis (1) Suicidal ideation: Status: Resolved (2) Alcohol abuse: Status: Acute (3) Methamphetamine abuse: Status: Acute (4) Psychosis: Status: Acute Reason for Visit Reason for Visit: MHE Brief History: History of Present Illness Lee Polanco is a 36 year old male who presented to the emergency department with the following report: Chief Complaint: Psychiatric Symptoms Stated Complaint: MHE Time Seen by Provider: 06/17/22 14:31 History of Present Illness: 36-year-old male presents emergency room complaining of being depressed and having suicidal thoughts. He denies a specific plan. A lot of this stems from an issue with regarding his family there is a allegation made about misconduct between him and his daughter and although he states it was fully disputed it lingers on. He has used meth in the past he does states last time he used meth was 2 to 3 days ago though he appears to be mildly under the influence at this time. He is not misbehaving he is cooperative and nonviolent. MD complaint: suicidal ideation and feels depressed Onset (ago): month(s) Duration: constant History of same: Yes Relieving factors: none Exacerbating factors: none Context: recent drug abuse Associated psychiatric symptoms: depression and suicidal ideation Associated symptoms: Reports depression and suicidal ideation Treatments prior to arrival: none If self harm: admits thoughts of self harm He was admitted to the neuropsychiatric unit for definitive treatment of those issues. He presents today reporting that he is not currently on medications but that he had a minor breakdown secondary to recent relapse on methamphetamine. He has had 1 inpatient hospitalization an excerpt of which is included below for context. He has not had significant outpatient services. He reports smoking about a pack of cigarettes a day, drinking alcohol regularly but not like he did in the past. He reports he has marijuana regularly but not daily. He denies cocaine methamphetamine and opiates but does report that he does have methamphetamine once a month and usually it is under control but occasionally he gets out of control which likely led to his current situation. He denies ever going to a rehab or having a DUI or any specific charges. Reports that his drug use started years ago when he was having depression and anxiety and ended up using substances more than was good to deal with those symptoms and then has had different times in his life where his use has gotten out of control. He reports that his last use was a few days ago but he reports that there were issues with legal challenges as well as needing to pay his bills and things of that nature some conflicts with family will let down making some bad choices from the standpoint of his use. He reports that he is gathered his thoughts pretty much now and he does not want to stay here over the weekend. He reports that he is better and does not know that he needs to stay. He was unwilling to make any commitment to sober living treatment or any other kind of treatment. We discussed the importance of recovery treatment for sobriety and he was espousing the I do not want to do it anymore so I think I am better approach. Per his 12/20/2019 [facility] inpatient psychiatric evaluation: SI Brief History: History of Present Illness Lee Polanco is a 34 year old male who comes in with history of having tried to hang himself yesterday afternoon. His mom stopped him. He had a noose around his neck but did not complete the task. He has had multiple attempts in the past, he says. He is very depressed. The patient has lost many family members over the last couple of years and he has not recovered from those losses. The patient lost his girlfriend of 11 years in an unexpected . He found her beside him in the morning. This is when he lost it. All this was compounded by his discovery that his girlfriend had lied to him about his children's paternity. DNA tests show that the patient is not the biological father of his children. The patient has experimented with suicidal methods. He has put a gun into his mouth. He says, I just want my life to end. His polysubstance abuse has not helped. BAL is 313, DOA is positive for THC, benzos and meth. Review of Systems Narrative: Denies: fever(s), chills or body aches E: Denies: change in vision or blurry vision ENMT: Denies: throat pain or nasal congestion Card: Denies: chest pain or dyspnea on exertion Resp: Denies: dyspnea, productive cough or non-productive cough GI: Denies: abdominal pain, nausea or vomiting : Denies: difficulty urinating Musc: Denies: extremity pain Skin/Breast: Denies: rash Neuro: Denies: headache(s) Psych: Reports: depression and other (Tried to hang himself his afternoon his mom stopped him); Denies: anxiety Layton/Lymph: Denies: easy bruising Meds NPU Home Medications Medication Instructions Recorded Confirmed Last Taken Type No Known Home Medications 12/17/19 12/17/19 Unknown History Allergies Allergy/AdvReac Type Severity Reaction Status Date / Time No Known Allergies Allergy Verified 12/16/19 20:26 PFS NPU PFS: Medical History (Updated 12/17/19 @ 09:53 by Josué Moses) 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 Hospital Course Hospital Course Lee presented to the emergency room endorsing that he tried to hang himself and that his mom stopped him. He endorsed multiple attempts, in the past, and endorsed depression ad suicidal ideation. He has been smoking marijuana and also had a UDS that was also noteworthy for benzodiazepine, amphetamines, and a blood alcohol level of 313. He was admitted to the neuropsychiatric unit for definitive treatment of those issues. On the unit, he quickly acclimated to the individual, group, and milieu therapies provided. He was started on Vistaril and Prazosin, and he tolerated those medications well. He was not interested in staring something more aggressive for his depression, because he felt that it was more situational. The situational issues involve that his significant other of eleven years unexpectedly, and in the process of managing his overall circumstances with family, and her family, it became clear that his children were not biologically his, so she had been lying to him about that during their lives. His response to these grief reactions, loss of perceived paternity, and things of that nature, led to him feeling very low, but he wants to work on it without being overly medicated. He showed positive response to the therapeutic milieu, as well as those medications to assist with sleep and anxiety. He was kept an additional day so that this show card writer could see him to ultimately serve as a second opinion, as the previous doctor had considered putting him on a 96-hour hold, as he wanted to leave, but my evaluation identified certainly pain from a situation, but that he appeared to lack credible lethality; but he was in some pain and needed outpatient follow up which was recommend and he was assisted in obtaining. During the hospitalization, the patient had routine laboratory studies which were within normal limits, except for a few outliers. Additionally, the patient had a general medical evaluation which was within normal limits and revealed no new acute processes. Discharge Summary At the time of discharge the patient denied all lethality, was absent psychosis, and mood and anxiety were well managed. The patient endorsed a plan to avoid all drugs of abuse and to follow-up with outpatient services, as recommended. The patient was evaluated and deemed to be absent credible lethality, and had achieved the maximum benefit from an inpatient hospitalization, and so he was discharged. Hospital Course Hospital Course He quickly acclimated to the individual, group milieu therapies. He presented with a positive UDS for cannabis benzodiazepines and methamphetamine. He endorsed having any problems experiencing having his breakdown after relapse and endorsed that he was not going to use again. We discussed the fact that clear history does not generally work, that he had no real commitment to the idea of ongoing treatment. He was given referrals by the treatment team for outpatient services. He had modest improvement and was able to contract for safety outside hospital, prior to discharge. During the hospitalization, the patient had routine laboratory studies which were within normal limits, except for a few outliers. Additionally, the patient had a general medical evaluation which was within normal limits and revealed no new acute processes. Discharge Summary At the time of discharge, the patient denied all lethality, was absent psychosis, and mood and anxiety were well managed. The patient endorsed a plan to avoid all drugs of abuse and to follow-up with outpatient services, as recommended. The patient was evaluated and deemed to be absent credible lethality, and had achieved the maximum benefit from an inpatient hospitalization, and so he was discharged. 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 No abnormal movements except for mild psychomotor retardation. Cooperative with exam and mild distress. Speech was slightly decreased rate normal volume. Mood described as depressed, affect congruent and subdued. Thought process organized. Thought content: Patient denied suicidal or homicidal ideation, there were no delusions reported or noted, he denies any auditory or visual hallucinations. Attention and concentration were intact and memory appeared reliable but none were formally tested. He is alert and oriented x3. Insight and judgment are limited. Impulse control impaired. Vitals/I&O/Wt Last Vital Signs Temp 97.3 F L 07/13/22 06:00 Pulse 90 07/13/22 06:00 Resp 16 07/13/22 06:00 BP 122/82 07/13/22 06:00 Pulse Ox 96 07/13/22 06:00 O2 Del Method 07/12/22 21:06 Weight last 48 hrs Weight 81.647 kg Data NPU 07/12/22 18:23 07/12/22 18:23 A&P Assessment and plan (1) Suicidal ideation: (2) Alcohol abuse: (3) Methamphetamine abuse: (4) Psychosis: Plan This is a 36-year-old white male with a long history of addiction and some mental health challenges who presents almost 4 weeks after a recent hospitalization that included psychosis likely from methamphetamine use with a clean UDS but reporting a recent relapse on alcohol somewhat ambivalent about treatment and medications. 1. Continue current medications.? Consider antidepressant/antianxiety medications as well as naltrexone for addiction. 2. Encourage individual, group and milieu therapy 3. Continue q-15 minute check for safety 4. Recommend sober living treatment at the highest level of care to which the patient is willing to commit. 5. Patient is on a 96-hour hold and we will evaluate for safety with likely discharge prior if patient is not engaging in a treatment plan moving forward. Involuntary Hold Information 96 Hour Hold: 96 Hour Involuntary Admission: Yes 96 Hour Hold Ending Date: 07/19/22 96 Hour Hold Ending Time: 18:50 Attestations NPU Medical Necessity Statement*: Inpatient hospitalization is medically necessary and the clinically appropriate intervention at this time.? We will monitor/initiate medications and make changes as indicated.? He will be in the hospital for over 2 midnights.? Likely length of stay 2-4 days. Coding Level of Care Code Acute Code for Chg Fwd Diagnoses Suicidal ideation R45.851 Alcohol abuse F10.10 Methamphetamine abuse F15.10 Psychosis F29
[2022-07-13] MEDS: acetaminophen 325 mg Tablet 650 MG PO (13:07)
[2022-07-13 14:00] VITALS: BP 134/89; PULSE 95; RESP 16; TEMP 36.6; O2SAT 98
[2022-07-13] MEDS: trazodone 50 mg Tablet PO (21:44)
--- NOTE | 2022-07-13 21:50 | PC.NURSE ---
PRN trazodone for sleep given as ordered per pt request.
[2022-07-13 22:00] VITALS: BP 143/99; PULSE 80; RESP 16; TEMP 36.9; O2SAT 95
[2022-07-14 06:00] VITALS: BP 124/86; PULSE 70; RESP 16; TEMP 36.5; O2SAT 95
[2022-07-14] MEDS: multivitamin therapeutic Tablet 1 TAB PO (08:39)
[2022-07-14] MEDS: folic acid 1 mg Tablet PO (08:39)
[2022-07-14] MEDS: thiamine 100 mg Tablet PO (08:39)
[2022-07-14] MEDS: nicotine 21 mg Patch 1 PATCH TRANSDERMA (08:40)
[2022-07-14 14:00] VITALS: BP 137/93; PULSE 79; RESP 18; TEMP 36.6; O2SAT 100
--- NOTE | 2022-07-14 15:38 | W.PM.NPUPNS ---
Subjective NPU Subjective: Patient presented today reporting that he was feeling better than he had when he came to the hospital. He was reporting all kinds of plans to manage his situation better. He reported he is keeping himself occupied here in the hospital and feels like he should be going home soon to put that things he has been discussing into affect. We discussed some addressing a commitment to his recovery and he was talking to talk talking about going home and pouring out all the alcohol and stopping that and continuing with patches when he gets home so he can stop smoking etc. Mental Status Exam MSE Comments: This is a well-nourished well-developed white male in hospital scrubs with limited grooming and adequate eye contact. No abnormal movements except for mild psychomotor retardation. Cooperative with exam and mild distress. Speech was slightly decreased rate normal volume. Mood described as better, affect congruent. Thought process organized. Thought content: Patient denied suicidal or homicidal ideation, there were no delusions reported or noted, he denies any auditory or visual hallucinations. Attention and concentration were intact and memory appeared reliable but none were formally tested. He is alert and oriented x3. Insight and judgment are limited. Impulse control improving. Vitals/I&O/Wt Last Vital Signs Temp 97.8 F 07/14/22 14:00 Pulse 79 07/14/22 14:00 Resp 18 07/14/22 14:00 BP 137/93 07/14/22 14:00 Pulse Ox 100 07/14/22 14:00 O2 Del Method 07/14/22 06:00 Weight last 48 hrs Weight 81.647 kg Data NPU 07/12/22 18:23 07/12/22 18:23 A&P Assessment and plan (1) Suicidal ideation: (2) Alcohol abuse: (3) Methamphetamine abuse: (4) Psychosis: Plan This is a 36-year-old white male with a long history of addiction and some mental health challenges who presents almost 4 weeks after a recent hospitalization that included psychosis likely from methamphetamine use with a clean UDS but reporting a recent relapse on alcohol somewhat ambivalent about treatment and medications. 1. Continue current medications.? Consider antidepressant/antianxiety medications as well as naltrexone for addiction. 2. Encourage individual, group and milieu therapy 3. Continue q-15 minute check for safety 4. Recommend sober living treatment at the highest level of care to which the patient is willing to commit. 5. Patient is on a 96-hour hold and we will evaluate for safety with likely discharge prior if patient is not engaging in a treatment plan moving forward. Involuntary Hold Information 96 Hour Hold: 96 Hour Involuntary Admission: Yes 96 Hour Hold Ending Date: 07/19/22 96 Hour Hold Ending Time: 18:50 Attestations NPU Medical Necessity Statement*: Inpatient hospitalization is medically necessary and the clinically appropriate intervention at this time.? We will monitor/initiate medications and make changes as indicated.? Likely length of stay 1-3 days. Coding Level of Care Code Acute Code for Chg Fwd Diagnoses Suicidal ideation R45.851 Alcohol abuse F10.10 Methamphetamine abuse F15.10 Psychosis F29
[2022-07-14] MEDS: trazodone 50 mg Tablet PO (20:50)
[2022-07-14 22:00] VITALS: BP 137/93; PULSE 96; RESP 16; TEMP 36.9; O2SAT 95
--- NOTE | 2022-07-15 03:04 | PC.NURSE ---
at bedtime, pt requested Trazodone for sleep.
[2022-07-15 06:00] VITALS: BP 143/106; PULSE 72; RESP 18; TEMP 37.2; O2SAT 90
[2022-07-15] MEDS: nicotine 21 mg Patch 1 PATCH TRANSDERMA (08:41)
[2022-07-15] MEDS: folic acid 1 mg Tablet PO (08:41)
[2022-07-15] MEDS: multivitamin therapeutic Tablet 1 TAB PO (08:41)
[2022-07-15] MEDS: thiamine 100 mg Tablet PO (08:41)
--- NOTE | 2022-07-15 14:16 | P.NPUDS_ITS ---
Diagnoses at Discharge Discharge Diagnosis (1) Suicidal ideation: Status: Resolved (2) Alcohol abuse: Status: Acute (3) Methamphetamine abuse: Status: Acute (4) Psychosis: Status: Resolved Reason for Visit Reason for Visit: PSYCH EVAL Brief History: History of Present Illness Lee Polanco is a 36 year old male who presented to the emergency department with the following report: Chief Complaint: Psychiatric Symptoms Stated Complaint: PSYCH EVAL Time Seen by Provider: 07/12/22 18:04 Source: patient and police Mode of arrival: ambulatory History of Present Illness:?? 28-year-old male came in with police he states t hat he does have a history of alcoholism he has methamphetamine abuse in the past he adamantly denies any use over the last month he states over the last 2 days he been having hallucinations along with suicidal thoughts along with the plan he states he has a plan to drink himself to .? He was admitted here 1 month ago he denies any worsening proving factors. Associated symptoms: Reports depression and suicidal ideation He was admitted to the neuropsychiatric unit for definitive treatment of those issues.? He presents today reporting that he has been sober from methamphetamines since his last hospitalization but that he had began drinking beer Valium to stay away from hard liquor but then after some days of drinking beer went to the hard liquor which led to a binge was led to him having depression and more suicidal ideation.? This his UDS was negative and he did present with a blood alcohol of 321.? He reports that he has depression related to his baby's mother dying around his age and makes him think about her and dying and different things like that.? We talked about the importance of his sobriety and keeping his mental health stable.? We talked about the impact of alcohol on mood etc.? We talked about him feeling his life with other activities and he reports that he is working and in jobs in his town.? We talked about filling it up with activities appropriate for 36-year-old male including active treatment for his mental health and addiction issues.? He seemed fairly ambivalent about this idea and seem to be focused on being here for a mental health break. ? We discussed, benefits and alternatives of reviewing medications for depression, anxiety and addiction prevention and he understood and agreed to consider these things as is documented in this note.? He denies substantive changes since he was last hospitalized so an excerpt of his last discharge summary is included below for context. Per his 06/19/2022 [facility] inpatient psychiatric discharge summary: Discharge Diagnosis (1) Suicidal ideation: ? ? ? Status: Resolved (2) Alcohol abuse: ? ? ? Status: Acute (3) Methamphetamine abuse: ? ? ? Status: Acute (4) Psychosis: ? ? ? Status: Acute Reason for Visit Reason for Visit:?? MHE? Brief History: History of Present Illness Lee Polanco is a 36 year old male who presented to the emergency department with the following report: Chief Complaint: Psychiatric Symptoms Stated Complaint: MHE Time Seen by Provider: 06/17/22 14:31 History of Present Illness:?? 36-year-old male presents emergency room complaining of being depressed and having suicidal thoughts.? He denies a specific plan.? A lot of this stems from an issue with regarding his family there is a allegation made about misconduct between him and his daughter and although he states it was fully disputed it lingers on.? He has used meth in the past he does states last time he used meth was 2 to 3 days ago though he appears to be mildly under the influence at this time.? He is not misbehaving he is cooperative and nonviolent. MD complaint: suicidal ideation and feels depressed Onset (ago): month(s) Duration: constant History of same: Yes Relieving factors: none Exacerbating factors: none Context: recent drug abuse Associated psychiatric symptoms: depression and suicidal ideation Associated symptoms: Reports depression and suicidal ideation Treatments prior to arrival: none If self harm: admits thoughts of self harm He was admitted to the neuropsychiatric unit for definitive treatment of those issues.? He presents today reporting that he is not currently on medications but that he had a minor breakdown secondary to recent relapse on methamphetamine.? He has had 1 inpatient hospitalization an excerpt of which is included below for context.? He has not had significant outpatient services.? He reports smoking about a pack of cigarettes a day, drinking alcohol regularly but not like he did in the past.? He reports he has marijuana regularly but not daily.? He denies cocaine methamphetamine and opiates but does report that he does have methamphetamine once a month and usually it is under control but occasionally he gets out of control which likely led to his current situation.? He denies ever going to a rehab or having a DUI or any specific charges.? Reports that his drug use started years ago when he was having depression and anxiety and ended up using substances more than was good to deal with those symptoms and then has had different times in his life where his use has gotten out of control.? He reports that his last use was a few days ago but he reports that there were issues with legal challenges as well as needing to pay his bills and things of that nature s ome conflicts with family will let down making some bad choices from the standpoint of his use.? He reports that he is gathered his thoughts pretty much now and he does not want to stay here over the weekend.? He reports that he is better and does not know that he needs to stay.? He was unwilling to make any commitment to sober living treatment or any other kind of treatment.? We discussed the importance of recovery treatment for sobriety and he was espousing the I do not want to do it anymore so I think I am better approach. Per his 12/20/2019 [facility] inpatient psychiatric evaluation: SI? Brief History: History of Present Illness Lee Polanco is a 34 year old male who comes in with history of having tried to hang himself yesterday afternoon.? His mom stopped him.? He had a noose around his neck but did not complete the task.? He has had multiple attempts in the past, he says.? He is very depressed. The patient has lost many family members over the last couple of years and he has not recovered from those losses.? The patient lost his girlfriend of 11 years in an unexpected .? He found her beside him in the morning.? This is when he lost it. All this was compounded by his discovery that his girlfriend had lied to him about his children's paternity.? DNA tests show that the patient is not the biological father of his children. The patient has experimented with suicidal methods.? He has put a gun into his mouth.? He says, I just want my life to end. His polysubstance abuse has not helped.? BAL is 313, DOA is positive for THC, benzos and meth. Review of Systems Narrative:?? Denies: fever(s), chills or body aches E:?? Denies: change in vision or blurry vision ENMT:?? Denies: throat pain or nasal congestion Card:?? Denies: chest pain or dyspnea on exertion Resp:?? Denies: dyspnea, productive cough or non-productive cough GI:?? Denies: abdominal pain, nausea or vomiting :?? Denies: difficulty urinating Musc:?? Denies: extremity pain Skin/Breast:?? Denies: rash Neuro:?? Denies: headache(s) Psych:?? Reports: depression and other (Tried to hang himself his afternoon his mom stopped him); Denies: anxiety Layton/Lymph:? Denies: easy bruising ? Meds NPU Home Medications ?Medication ?Instructions ?Recorded ?Confirmed ?Last Taken ?Type No Known Home Medications ? 12/17/19 12/17/19 Unknown History Allergies Allergy/AdvReac Type Severity Reaction Status Date / Time No Known Allergies Allergy ? ? Verified 12/16/19 20:26 PFSH NPU PFSH:?? 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 Other Psychiatric History:?? Other Psychiatric History: Multiple attempts. Hospital Course Hospital Course Lee presented to the emergency room endorsing that he tried to hang himself and that his mom stopped him. He endorsed multiple attempts, in the past, and endorsed depression ad suicidal ideation. He has been smoking marijuana and also had a UDS that was also noteworthy for benzodiazepine, amphetamines, and a blood alcohol level of 313. He was admitted to the neuropsychiatric unit for definitive treatment of those issues. On the unit, he quickly acclimated to the individual, group, and milieu therapies provided. He was started on Vistaril and Prazosin, and he tolerated those medications well. He was not interested in staring something more aggressive for his depression, because he felt that it was more situational. The situational issues involve that his significant other of eleven years unexpectedly, and in the process of managing his overall circumstances with family, and her family, it became clear that his children were not biologically his, so she had been lying to him about that during their lives. His response to these grief reactions, loss of perceived paternity, and things of that nature, led to him feeling very low, but he wants to work on it without being overly medicated. He showed positive response to the therapeutic milieu, as well as those medications to assist with sleep and anxiety. He was kept an additional day so that this lead technical writer could see him to ultimately serve as a second opinion, as the previous doctor had considered putting him on a 96-hour hold, as he wanted to leave, but my evaluation identified certainly pain from a situation, but that he appeared to lack credible lethality; but he was in some pain and needed outpatient follow up which was recommend and he was assisted in obtaining. During the hospitalization, the patient had routine laboratory studies which were within normal limits, except for a few outliers. Additionally, the patient had a general medical evaluation which was within normal limits and revealed no new acute processes. Discharge Summary At the time of discharge the patient denied all lethality, was absent psychosis, and mood and anxiety were well managed. The patient endorsed a plan to avoid all drugs of abuse and to follow-up with outpatient services, as recommended. The patient was evaluated and deemed to be absent credible lethality, and had achieved the maximum benefit from an inpatient hospitalization, and so he was discharged. Hospital Course Hospital Course He quickly acclimated to the individual, group milieu therapies.? He presented with a negative UDS but a BAL of 321 .? He endorsed having stopped all other drugs and now he was not going to use alcohol again.? We discussed the fact that going back to work is not generally a cure for addiction and reported an openness to considering treatment and his mother is demanding that the addiction be addressed if he is going to live with her.? He was given referrals by the treatment team for outpatient services.? He had modest improvement and was able to contract for safety outside hospital, prior to discharge.? During the hospitalization, the patient had routine laboratory studies which were within normal limits, except for a few outliers. Additionally, the patient had a general medical evaluation which was within normal limits and revealed no new acute processes. Discharge Summary At the time of discharge, the patient denied all lethality, was absent psychosis, and mood and anxiety were well managed. The patient endorsed a plan to avoid all drugs of abuse and to follow-up with outpatient services, as recommended. The patient was evaluated and deemed to be absent credible lethality, and had achieved the maximum benefit from an inpatient hospitalization, and so he was discharged. Involuntary Hold Information 96 Hour Hold: 96 Hour Involuntary Admission: Yes 96 Hour Hold Ending Date: 07/19/22 96 Hour Hold Ending Time: 18:50 Mental Status Exam MSE Comments: This is a well-nourished well-developed white male in hospital scrubs with l imited grooming and adequate eye contact. No abnormal movements except for mild psychomotor retardation. Cooperative with exam in no acute distress. Speech was normal rate and volume. Mood described as better, affect congruent. Thought process organized. Thought content: Patient denied suicidal or homicidal ideation, there were no delusions reported or noted, he denies any auditory or visual hallucinations. Attention and concentration were intact and memory appeared reliable but none were formally tested. He is alert and oriented x3. Insight and judgment are limited. Impulse control improving. Discharge Data Studies Completed and Pending: Laboratory Results WBC 7.3 10^3/uL (4.0- 10.0) 07/12/22 18: RBC 5.27 10^6/uL (4.1 -5.3) 07/12/22 18: Hgb 16.2 g/dL (11.7-1 6.6) 07/12/22 18: Hct 47.3 % (42.0-52.0 ) 07/12/22 18: MCV 89.8 fl (80-94) 07/12/22 18: MCH 30.7 pg (28.0-34. 0) 07/12/22 18: MCHC 34.2 g/dL (30.0-3 6.0) 07/12/22 18: RDW 13.4 % (12.1-15.1 ) 07/12/22 18: Plt Count 315 10^3/cmm (130 -400) 07/12/22: MPV 9.8 fL (7.4-10.4) 07/12/22 18: Neut % (Auto) 45.2 % 07/12/22 18: Lymph % (Auto) 40.9 % 07/12/22 18: Tift % (Auto) 10.2 % 07/12/22 18: Eos % (Auto) 2.6 % 07/12/22 18: Baso % (Auto) 0.8 % 07/12/22 18: Neut # (Auto) 3.31 10^3/uL (1.8 -7.7) 07/12/22 18:23 Lymph # (Auto) 3.0 10^3/uL (0.8- 4.8) 07/12/22 18:23 Tift # (Auto) 0.8 10^3/uL (0.2- 0.9) 07/12/22 18:23 Eos # (Auto) 0.2 10^3/uL (0.0- 0.8) 07/12/22 18: Baso # (Auto) 0.1 10^3/uL (0.0- 0.1) 07/12/22 18: Nucleated RBC % (a uto) 0 % 07/12/22 18: Nucleated RBCs # 0.0 /100WBC 07/12/22 18: Sodium 136 mmol/L (136-1 45) 07/12/22 18: Potassium 3.6 mmol/L (3.5-5 .1) 07/12/22 18: Chloride 100 mmol/L (98-10 7) 07/12/22 18: Carbon Dioxide 23 mmol/L (22-29) 07/12/22 18: Anion Gap 16.6 (5-19) 07/12/22 18: BUN 12 mg/dL (6-20) 07/12/22 18: Creatinine 0.8 mg/dL (0.7-1. 2) 07/12/22 18: GFR Calculation 108.2 mL/min (90- 130) 07/12/22 18: Glucose 86 mg/dL (65-115) 07/12/22 18: Calculated Osmolal ity 281 mOsm/kg (285- 295) L 07/12/22 18: Calcium 8.5 mg/dL (8.5-10 .5) 07/12/22 18: Total Bilirubin 0.4 mg/dL (0.15-1 .2) 07/12/22 18: AST 25 U/L (0-40) 07/12/22 18: ALT 33 U/L (0-41) 07/12/22 18: Alkaline Phosphata se 87 U/L (40-130) 07/12/22 18: Total Protein 7.7 g/dL (6.6-8.7 ) 07/12/22 18: Albumin 5.0 g/dL (3.5-5.2 ) 07/12/22 18:23 Globulin 2.7 g/dL (1.3-4.6 ) 07/12/22 18:23 TSH 0.57 uIU/mL (0.27 -4.20) 07/12/22 18:23 Urine Color Light yellow (Ye llow) 07/12/22 18:07 Urine Appearance Clear (CLEAR) 07/12/22 18:07 Urine pH 6 (5-7) 07/12/22 18:07 Ur Specific Gravit y 1.010 (1.005-1.0 30) 07/12/22 18:07 Urine Protein Neg (Negative) 07/12/22 18:07 Urine Glucose (UA) Norm (Normal) 07/12/22 18:07 Urine Ketones Negative (Negati ve) 07/12/22 18:07 Urine Blood Neg (Negative) 07/12/22 18:07 Urine Nitrate Negative (Negati ve) 07/12/22 18:07 Urine Bilirubin Neg (Negative) 07/12/22 18:07 Urine Urobilinogen Norm mg/dL (Negat larry) 07/12/22 18:07 Ur Leukocyte Libia ase Negative (Negati ve) 07/12/22 18:07 Salicylates < 0.3 mg/dL (3-10 ) L 07/12/22 18:23 Urine Opiates Scre en Negative ng/mL (N egative) 07/12/22 18:07 Acetaminophen < 5.0 ug/mL (10-3 0) L 07/12/22 18:23 Ur Barbiturates Sc reen Negative ng/mL (N egative) 07/12/22 18:07 Ur Phencyclidine S crn Negative ng/mL (N egative) 07/12/22 18:07 Ur Amphetamines Sc reen Negative ng/mL (N egative) 07/12/22 18:07 U Benzodiazepines Scrn Negative ng/mL (N egative) 07/12/22 18:07 Urine Cocaine Scre en Negative ng/mL (N egative) 07/12/22 18:07 U Marijuana (THC) Screen Negative ng/mL (N egative) 07/12/22 18:07 Ethyl Alcohol 321 mg/dL (0-10) H* 07/12/22 18:23 Vitals: Last Vital Signs Temp 98.9 F 07/15/22 06:00 Pulse 72 07/15/22 06:00 Resp 18 07/15/22 06:00 BP 143/106 07/15/22 06:00 Pulse Ox 90 07/15/22 06:00 O2 Del Method 07/15/22 06:00 Discharge Plan Discharge Patient Disposition: Home Condition: Stable Prescriptions: New trazodone 50 mg Tablet 50 mg PO BEDTIME PRN (Reason: Sleep) 30 Days Qty: 30 1RF Continued Vitamin B-1 (mononitrate) 100 mg Tablet 100 mg PO DAILY 30 Days Qty: 30 1RF Discharge Orders: Discharge Order (Routine); Ordered 07/15/22 Ordered By: Wolfgang Langston Referrals: [facility] [Other] [facility] [Other] [facility] [Outside] - 07/19/22 11:30 am (Initial appointment.) Montana Escobar MD [Physician] - 07/20/22 1:00 pm ([address] [place] [id number]. Establishing care and hospital follow up. ) Discharge Diet: Regular Discharge Activity: Resume usual activity Patient Instructions: Trazodone (By mouth), Abuse of Alcohol (ED), Help Prevent Suicide (GEN), Opioid Safety Discharge Attestations NPU Time Spent in Discharge Care*: less than 30 min Specific Discharge Activities: Specific discharge activities: educating patient, discussing with case repairer/social workers/dc planners, documenting/other paperwork and evaluating patient/reviewing data Coding Level of Care Code Acute Chg FW DC note Diagnoses Suicidal ideation R45.851 Alcohol abuse F10.10 Methamphetamine abuse F15.10 Psychosis F29
[2022-07-15 14:34] VITALS: BP 143/106; PULSE 72; RESP 18; TEMP 37.2; O2SAT 90
== END 2022-07-15 16:25 | disposition home or self-care (01) | DRG 897 ==
LOC: ER 18:39 → NP 20:17
PROVIDERS: Nurse Practitioner Family; Admitting Provider Psychiatry & Neurology Psychiatry; Emergency Provider Emergency Medicine; Visit Provider Psychiatry & Neurology Psychiatry
DX: F10.129 Alcohol abuse with intoxication, unspecified (principal); R45.851 Suicidal ideations; Y90.8 Blood alcohol level of 240 mg/100 ml or more; F15.10 Other stimulant abuse, uncomplicated; F32.A Depression, unspecified; F43.81 Prolonged grief disorder
CPT/HCPCS: 36415; 80053; 80306; 80307; 81003; 84443; 85025; 96372; 97150; 97165; 99285; J2060; J3411

== ENCOUNTER 2022-08-12 01:26 | Inpatient (IN) | payer BC, MEDICAID, SELFPAY ==
[2022-08-12 01:31] VITALS: BP 146/108; PULSE 84; RESP 16; TEMP 36.7; O2SAT 94; BMI 25.4
--- NOTE | 2022-08-12 01:36 | ED.C_ITS ---
HPI - Psych General: Chief Complaint: Psychiatric Symptoms Stated Complaint: SI Time Seen by Provider: 08/12/22 01:30 Source: patient Mode of arrival: ambulatory Limitations: no limitations History of Present Illness: 36-year-old male who states that over the last 2 to 3 days he just does not feel mentally right states has been having depression he denies any active suicidal thoughts but he states he is severely depressed and feels like he needs to get help he has had thoughts of hurting others but no one in specific. He voluntarily wants to be admitted to the psych rota. Associated symptoms: Reports depression and homicidal ideation Review of Systems Const: Denies: fever(s), chills, body aches or change in appetite Eyes: Denies: blurry vision or eye discomfort ENMT: Denies: throat pain or dental pain Card: Denies: chest pain Resp: Denies: dyspnea GI: Denies: abdominal pain, nausea, vomiting or diarrhea : Denies: dysuria Musc: Denies: neck pain or back pain Skin/Breast: Denies: rash Neuro: Denies: headache(s) Psych: Reports: depression and homicidal ideation Layton/Lymph: Denies: easy bruising All/Imm: Denies: urticaria PFSH ED PFSH: Medical History Alcohol abuse 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 Methamphetamine abuse Psychiatric care Social History Alcohol intake: current Physical Exam Const: COMMON NORMALS: patient oriented x3 HENMT: COMMON NORMALS: normocephalic and atraumatic HEAD & SCALP: normocephalic and atraumatic Eye: COMMON NORMALS: conjunctivae normal CONJUNCTIVA: Yes conjunctivae normal Neck/C-Spine: COMMON NORMALS: full ROM and supple Chest: COMMONS NORMALS: normal inspection of the chest and normal palpation of entire chest wall Resp: COMMON NORMALS: normal respiratory effort, No retractions, No use of accessory muscles and clear to auscultation bilaterally AUSCULTATION: clear to auscultation bilaterally Cardio: COMMON NORMALS: regular rate, regular rhythm and No murmurs present ( Cardio) RATE: regular rate RHYTHM: regular rhythm GI: COMMON NORMALS: Normal to inspection, nondistended, normoactive bowel sounds present, Soft to palpation, non-tender and no masses PALPATION: Yes Soft to palpation Extremity: COMMON NORMALS: normal to inspection and full ROM Neuro: COMMON NORMALS: patient oriented x3, moves all extremities and no focal motor deficits Psych: COMMON NORMALS: mental status grossly normal, Normal thought process present and cooperative MOOD & AFFECT: Yes depressed mood THOUGHT PROCESS: Normal thought process present Skin: COMMON NORMALS: no rashes or lesions noted and no wounds GENERAL SKIN EXAM: no rashes or lesions noted Course Vital Signs: Vital signs: Vital Signs Temperature 98.1 F 08/12/22 01:31 Pulse Rate 90 08/12/22 03:06 Respiratory Rate 14 08/12/22 03:06 Blood Pressure 119/75 08/12/22 03:06 Pulse Oximetry 94 08/12/22 03:06 Oxygen Delivery Me thod Room Air 08/12/22 03:06 MDM - Psych Medical Decision Making Patient presents with depression along with thoughts of harm no actual suicidal homicidal thoughts he is voluntarily wanting to be admitted I spoke to Dr. Langston he is medically cleared will admit to the psychiatric unit. Lab Data 08/12/22 01:49 08/12/22 01:49 Discharge Plan Discharge Patient Disposition: Admitted As Inpatient Admit Provider: Wolfgang Langston Clinical Impression: Depression, Alcohol abuse Condition: Stable Coding Level of Care Code ED Director Of Assessing for Delmis Thompson
[2022-08-12 01:54] LABS: Basophils # 0.1 10^3/uL (0.0-0.1); Basophils % 0.6 %; Eosinophils # 0.3 10^3/uL (0.0-0.8); Eosinophils % 2.2 %; Hematocrit 51.1 % (42.0-52.0); Hemoglobin 16.8 g/dL (11.7-16.6); Lymphocytes # 4.8 10^3/uL (0.8-4.8); Lymphocytes % 35.2 %; Mean Corpuscular HGB Conc 32.9 g/dL (30.0-36.0); Mean Corpuscular Hemoglobin 29.5 pg (28.0-34.0); Mean Corpuscular Volume 89.6 fl (80-94); Mean Platelet Volume 9.1 fL (7.4-10.4); Monocytes % 7.3 %; Neutrophils # 7.35 10^3/uL (1.8-7.7); Neutrophils % 54.5 %; Nucleated Red Blood Cells % 0 %; Platelet Count 373 10^3/cmm (130-400); Red Cell Distribution Width 13.2 % (12.1-15.1); White Blood Count 13.5 10^3/uL (4.0-10.0)
[2022-08-12 02:11] LABS: Alanine Aminotransferase 27 U/L (0-41); Albumin Level 5.3 g/dL (3.5-5.2); Alcohol Level 263 mg/dL (0-10); Alkaline Phosphatase 106 U/L (40-130); Aspartate Amino Transferase 28 U/L (0-40); Blood Urea Nitrogen 13 mg/dL (6-20); Calcium 9.2 mg/dL (8.5-10.5); Carbon Dioxide 27 mmol/L (22-29); Chloride 97 mmol/L (98-107); Globulin 2.9 g/dL (1.3-4.6); Glomerular Filtration Rate 108.2 mL/min (90-130); Glucose 93 mg/dL (65-115); Osmolality Calculated 288 mOsm/kg (285-295); Sodium 139 mmol/L (136-145); Total Bilirubin 0.5 mg/dL (0.15-1.2); Total Protein 8.2 g/dL (6.6-8.7)
[2022-08-12 02:43] LABS: Acetaminophen < 5.0 ug/mL (10-30); Salicylate < 0.3 mg/dL (3-10)
[2022-08-12 02:44] LABS: Amphetamines Screen Urine Negative (Negative); Barbiturates Screen Urine Negative (Negative); Benzodiazepines Screen Urine Negative (Negative); Cocaine Screen Urine Negative (Negative); Opiate Screen Urine Negative (Negative); PCP Screen Urine Negative (Negative); THC Screen Urine Positive (Negative)
[2022-08-12 03:06] VITALS: BP 119/75; PULSE 90; RESP 14; O2SAT 94
[2022-08-12 03:38] VITALS: PULSE 91; RESP 16; O2SAT 92
[2022-08-12 03:47] VITALS: BP 137/95; PULSE 87; RESP 18; TEMP 36.6; O2SAT 96
--- NOTE | 2022-08-12 04:14 | PC.NURSE ---
pt admitted to NPU from ED for increased depression and alcohol withdrawal. arrived anxious but cooperative. body/safety search performed with no issues or contraband noted. pt reports a verbal altercation with his mother today which triggered him to feel low . denies current si hi avh and contracts for safety. pt appears anxious and is very short with his answers. reports med compliance with his HS trazadone for sleep. pt reports alcohol marijuana use recently. denies any other drug use. no other issues voiced or noted at this time.
--- NOTE | 2022-08-12 08:38 | W.PM.NPUH&PS ---
Providers/Chief Complaint Admitting Physician: Wolfgang Langston MD Primary Care Provider: Joel Escobar Chief Complaint: SI HPI NPU History of Present Illness Lee Polanco is a 36 year old male who presented to the emergency department with the following report: Chief Complaint: Psychiatric Symptoms Stated Complaint: SI Time Seen by Provider: 08/12/22 01:30 Source: patient Mode of arrival: ambulatory Limitations: no limitations History of Present Illness: 36-year-old male who states that over the last 2 to 3 days he just does not feel mentally right states has been having depression he denies any active suicidal thoughts but he states he is severely depressed and feels like he needs to get help he has had thoughts of hurting others but no one in specific. He voluntarily wants to be admitted to the psych orta. Associated symptoms: Reports depression and homicidal ideation. He is admitted to the neuropsychiatric unit for definitive treatment of those issues. 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 He was positive for cannabis and his blood alcohol was 263. He reports he has been back to drinking having relapsed. Like his last hospitalization is increased use of alcohol attention and she pressed concerns and lack of willingness to tolerate them continuum behavior as he is staying with her. He presents today open to continue medication and work on his depression, anxiety and reportedly an openness to consider an inpatient rehab. We discussed the risks, benefits and alternatives of restarting thiamine and put him on the CIWA protocol and he understood and agreed proceed as documented in this note. He agreed to work with the support team for looking at drug and alcohol treatment. He is considering possibility of antidepressant but seems ambivalent about that. An excerpt of his admission discharge summary from less than a month ago is included below given the lack of substance changes and shortly. Per his 07/15/2022 [facility] inpatient psychiatric discharge summary: Discharge Diagnosis (1) Suicidal ideation: Status: Resolved (2) Alcohol abuse: Status: Acute (3) Methamphetamine abuse: Status: Acute (4) Psychosis: Status: Resolved Reason for Visit Reason for Visit: PSYCH EVAL Brief History: History of Present Illness Lee Polanco is a 36 year old male who presented to the emergency department with the following report: Chief Complaint: Psychiatric Symptoms Stated Complaint: PSYCH EVAL Time Seen by Provider: 07/12/22 18:04 Source: patient and police Mode of arrival: ambulatory History of Present Illness: 28-year-old male came in with police he states that he does have a history of alcoholism he has methamphetamine abuse in the past he adamantly denies any use over the last month he states over the last 2 days he been having hallucinations along with suicidal thoughts along with the plan he states he has a plan to drink himself to . He was admitted here 1 month ago he denies any worsening proving factors. Associated symptoms: Reports depression and suicidal ideation He was admitted to the neuropsychiatric unit for definitive treatment of those issues. He presents today reporting that he has been sober from methamphetamines since his last hospitalization but that he had began drinking beer Valium to stay away from hard liquor but then after some days of drinking beer went to the hard liquor which led to a binge was led to him having depression and more suicidal ideation. This his UDS was negative and he did present with a blood alcohol of 321. He reports that he has depression related to his baby's mother dying around his age and makes him think about her and dying and different things like that. We talked about the importance of his sobriety and keeping his mental health stable. We talked about the impact of alcohol on mood etc. We talked about him feeling his life with other activities and he reports that he is working and in jobs in his town. We talked about filling it up with activities appropriate for 36-year-old male including active treatment for his mental health and addiction issues. He seemed fairly ambivalent about this idea and seem to be focused on being here for a mental health break. We discussed, benefits and alternatives of reviewing medications for depression, anxiety and addiction prevention and he understood and agreed to consider these things as is documented in this note. He denies substantive changes since he was last hospitalized so an excerpt of his last discharge summary is included below for context. Per his 06/19/2022 [facility] inpatient psychiatric discharge summary: Discharge Diagnosis (1) Suicidal ideation: Status: Resolved (2) Alcohol abuse: Status: Acute (3) Methamphetamine abuse: Status: Acute (4) Psychosis: Status: Acute Reason for Visit Reason for Visit: MHE Brief History: History of Present Illness Lee Polanco is a 36 year old male who presented to the emergency department with the following report: Chief Complaint: Psychiatric Symptoms Stated Complaint: MHE Time Seen by Provider: 06/17/22 14:31 History of Present Illness: 36-year-old male presents emergency room complaining of being depressed and having suicidal thoughts. He denies a specific plan. A lot of this stems from an issue with regarding his family there is a allegation made about misconduct between him and his daughter and although he states it was fully disputed it lingers on. He has used meth in the past he does states last time he used meth was 2 to 3 days ago though he appears to be mildly under the influence at this time. He is not misbehaving he is cooperative and nonviolent. MD complaint: suicidal ideation and feels depressed Onset (ago): month(s) Duration: constant History of same: Yes Relieving factors: none Exacerbating factors: none Context: recent drug abuse Associated psychiatric symptoms: depression and suicidal ideation Associated symptoms: Reports depression and suicidal ideation Treatments prior to arrival: none If self harm: admits thoughts of self harm He was admitted to the neuropsychiatric unit for definitive treatment of those issues. He presents today reporting that he is not currently on medications but that he had a minor breakdown secondary to recent relapse on methamphetamine. He has had 1 inpatient hospitalization an excerpt of which is included below for context. He has not had significant outpatient services. He reports smoking about a pack of cigarettes a day, drinking alcohol regularly but not like he did in the past. He reports he has marijuana regularly but not daily. He denies cocaine methamphetamine and opiates but does report that he does have methamphetamine once a month and usually it is under control but occasionally he gets out of control which likely led to his current situation. He denies ever going to a rehab or having a DUI or any specific charges. Reports that his drug use started years ago when he was having depression and anxiety and ended up using substances more than was good to deal with those symptoms and then has had different times in his life where his use has gotten out of control. He reports that his last use was a few days ago but he reports that there were issues with legal challenges as well as needing to pay his bills and things of that nature some conflicts with family will let down making some bad choices from the standpoint of his use. He reports that he is gathered his thoughts pretty much now and he does not want to stay here over the weekend. He reports that he is better and does not know that he needs to stay. He was unwilling to make any commitment to sober living treatment or any other kind of treatment. We discussed the importance of recovery treatment for sobriety and he was espousing the I do not want to do it anymore so I think I am better approach. Per his 12/20/2019 [facility] inpatient psychiatric evaluation: SI Brief History: History of Present Illness Lee Polanco is a 34 year old male who comes in with history of having tried to hang himself yesterday afternoon. His mom stopped him. He had a noose around his neck but did not complete the task. He has had multiple attempts in the past, he says. He is very depressed. The patient has lost many family members over the last couple of years and he has not recovered from those losses. The patient lost his girlfriend of 11 years in an unexpected . He found her beside him in the morning. This is when he lost it. All this was compounded by his discovery that his girlfriend had lied to him about his children's paternity. DNA tests show that the patient is not the biological father of his children. The patient has experimented with suicidal methods. He has put a gun into his mouth. He says, I just want my life to end. His polysubstance abuse has not helped. BAL is 313, DOA is positive for THC, benzos and meth. Review of Systems Narrative: Denies: fever(s), chills or body aches E: Denies: change in vision or blurry vision ENMT: Denies: throat pain or nasal congestion Card: Denies: chest pain or dyspnea on exertion Resp: Denies: dyspnea, productive cough or non-productive cough GI: Denies: abdominal pain, nausea or vomiting : Denies: difficulty urinating Musc: Denies: extremity pain Skin/Breast: Denies: rash Neuro: Denies: headache(s) Psych: Reports: depression and other (Tried to hang himself his afternoon his mom stopped him); Denies: anxiety Layton/Lymph: Denies: easy bruising Meds NPU Home Medications Medication Instructions Recorded Confirmed Last Taken Type No Known Home Medications 12/17/19 12/17/19 Unknown History Allergies Allergy/AdvReac Type Severity Reaction Status Date / Time No Known Allergies Allergy Verified 12/16/19 20:26 [facility] NPU PFSH: Medical History (Updated 12/17/19 @ 09:53 by Josué Moses) 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 Hospital Course He quickly acclimated to the individual, group milieu therapies. He presented with a negative UDS but a BAL of 321 . He endorsed having stopped all other drugs and now he was not going to use alcohol again. We discussed the fact that going back to work is not generally a cure for addiction and reported an openness to considering treatment and his mother is demanding that the addiction be addressed if he is going to live with her. He was given referrals by the treatment team for outpatient services. He had modest improvement and was able to contract for safety outside hospital, prior to discharge. During the hospitalization, the patient had routine laboratory studies which were within normal limits, except for a few outliers. Additionally, the patient had a general medical evaluation which was within normal limits and revealed no new acute processes. Discharge Summary At the time of discharge, the patient denied all lethality, was absent psychosis, and mood and anxiety were well managed. The patient endorsed a plan to avoid all drugs of abuse and to follow-up with outpatient services, as recommended. The patient was evaluated and deemed to be absent credible lethality, and had achieved the maximum benefit from an inpatient hospitalization, and so he was discharged. 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 No abnormal movements except for mild psychomotor agitation. Cooperative with exam and mild distress. Speech was slightly increased rate normal volume. Mood described as a little down, affect slightly hyperkinetic. Thought process organized. Thought content: Patient denied suicidal or homicidal ideation, there were no delusions reported or noted, he denies any auditory or visual hallucinations. Attention and concentration were intact and memory appeared reliable but none were formally tested. He is alert and oriented x3. Insight and judgment are limited. Impulse control impaired. Vitals/I&O/Wt Last Vital Signs Temp 97.8 F 08/12/22 03:47 Pulse 87 08/12/22 03:47 Resp 18 08/12/22 03:47 BP 137/95 08/12/22 03:47 Pulse Ox 96 08/12/22 03:47 O2 Del Method Room Air 08/12/22 03:47 Weight last 48 hrs Weight 92.533 kg Data NPU 08/12/22 01:49 08/12/22 01:49 A&P Assessment and plan (1) Suicidal ideation: (2) Alcohol abuse: (3) Methamphetamine abuse: (4) Psychosis: Plan This is a 36-year-old white male with a long history of addiction and some mental health challenges who presents almost 1 month after a recent hospitalization with another hospitalization 4 weeks before that now seemingly a couple months removed from methamphetamine use with a UDS positive for cannabis only and will alcohol 263. 1. Continue current medications.? Consider antidepressant/antianxiety medications as well as naltrexone for addiction. 2. Encourage individual, group and milieu therapy 3. Continue q-15 minute check for safety 4. Recommend sober living treatment at the highest level of care to which the patient is willing to commit. Involuntary Hold Information 96 Hour Hold: 96 Hour Involuntary Admission: No Attestations NPU Medical Necessity Statement*: Inpatient hospitalization is medically necessary and the clinically appropriate intervention at this time.? We will monitor/initiate medications and make changes as indicated.? He will be in the hospital for over 2 midnights.? Likely length of stay 2-4 days. Coding Level of Care Code Acute Code for [facility] Fwd Diagnoses Suicidal ideation R45.851 Alcohol abuse F10.10 Methamphetamine abuse F15.10 Psychosis F29
[2022-08-12] MEDS: nicotine 21 mg Patch 1 PATCH TRANSDERMA (08:58)
[2022-08-12] MEDS: multivitamin therapeutic Tablet 1 TAB PO (08:59)
[2022-08-12] MEDS: folic acid 1 mg Tablet PO (08:59)
[2022-08-12] MEDS: thiamine 100 mg Tablet PO (08:59)
[2022-08-12 14:00] VITALS: BP 137/94; PULSE 94; RESP 18; TEMP 36.9; O2SAT 97
[2022-08-12 19:57] VITALS: BP 158/104; PULSE 101; RESP 18; TEMP 37.1; O2SAT 94
[2022-08-12] MEDS: trazodone 50 mg Tablet PO (20:20)
[2022-08-12] MEDS: LORazepam 2 mg Tablet PO (20:20)
[2022-08-13 06:00] VITALS: BP 141/113; PULSE 118; RESP 18; TEMP 36.4; O2SAT 97
[2022-08-13] MEDS: multivitamin therapeutic Tablet 1 TAB PO (08:26)
[2022-08-13] MEDS: nicotine 21 mg Patch 1 PATCH TRANSDERMA (08:26)
[2022-08-13] MEDS: thiamine 100 mg Tablet PO (08:26)
[2022-08-13] MEDS: folic acid 1 mg Tablet PO (08:26)
--- NOTE | 2022-08-13 13:46 | W.PM.NPUPNS ---
Subjective NPU Subjective: Patient presented today reporting that he is doing better. He continues to downplay any significant problems he was having and denies any plan for any aggressive drug and alcohol treatment. He endorsed that he will be returning to his mother's and denied any interest in further engagement in treatment. We discussed the likelihood of discharge tomorrow. Mental Status Exam MSE Comments: This is a well-nourished well-developed white male in hospital scrubs with limited grooming and adequate eye contact. No abnormal movements except for mild psychomotor agitation. Cooperative with exam and mild distress. Speech was slightly increased rate normal volume. Mood described as a little better, affect slightly hyperkinetic. Thought process organized. Thought content: Patient denied suicidal or homicidal ideation, there were no delusions reported or noted, he denies any auditory or visual hallucinations. Attention and concentration were intact and memory appeared reliable but none were formally tested. He is alert and oriented x3. Insight and judgment are limited. Impulse control improving but limited. Vitals/I&O/Wt Last Vital Signs Temp 97.6 F 08/13/22 06:00 Pulse 118 H 08/13/22 06:00 Resp 18 08/13/22 06:00 BP 141/113 08/13/22 06:00 Pulse Ox 97 08/13/22 06:00 O2 Del Method Room Air 08/13/22 06:00 Weight last 48 hrs Weight 92.533 kg Data NPU 08/12/22 01:49 08/12/22 01:49 A&P Assessment and plan (1) Suicidal ideation: (2) Alcohol abuse: (3) Methamphetamine abuse: (4) Psychosis: Plan This is a 36-year-old white male with a long history of addiction and some mental health challenges who presents almost 1 month after a recent hospitalization with another hospitalization 4 weeks before that now seemingly a couple months removed from methamphetamine use with a UDS positive for cannabis only and will alcohol 263. 1. Continue current medications.? Consider antidepressant/antianxiety medications as well as naltrexone for addiction. 2. Encourage individual, group and milieu therapy 3. Continue q-15 minute check for safety 4. Recommend sober living treatment at the highest level of care to which the patient is willing to commit. Involuntary Hold Information 96 Hour Hold: 96 Hour Involuntary Admission: No Attestations NPU Medical Necessity Statement*: Inpatient hospitalization is medically necessary and the clinically appropriate intervention at this time.? We will monitor/initiate medications and make changes as indicated.? Likely length of stay 1-3 days. Coding Level of Care Code Acute Code for g Fwd Diagnoses Suicidal ideation R45.851 Alcohol abuse F10.10 Methamphetamine abuse F15.10 Psychosis F29
[2022-08-13 14:00] VITALS: BP 126/92; PULSE 90; RESP 16; TEMP 36.9; O2SAT 95
[2022-08-13] MEDS: trazodone 50 mg Tablet PO (20:00)
[2022-08-13 21:55] VITALS: BP 137/91; PULSE 92; RESP 18; TEMP 37.1; O2SAT 96
[2022-08-14 06:00] VITALS: BP 136/95; PULSE 90; RESP 16; TEMP 36.8; O2SAT 97
[2022-08-14] MEDS: multivitamin therapeutic Tablet 1 TAB PO (09:01)
[2022-08-14] MEDS: nicotine 21 mg Patch 1 PATCH TRANSDERMA (09:01)
[2022-08-14] MEDS: folic acid 1 mg Tablet PO (09:01)
[2022-08-14] MEDS: thiamine 100 mg Tablet PO (09:01)
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
[2022-08-14 14:02] VITALS: BP 136/95; PULSE 90; RESP 16; TEMP 36.8; O2SAT 97
== END 2022-08-14 14:49 | disposition home or self-care (01) | DRG 897 ==
LOC: ER 01:44 → NP 03:36
PROVIDERS: Admitting Provider Psychiatry & Neurology Psychiatry; Emergency Provider Emergency Medicine; PCP Family Medicine; Visit Provider Psychiatry & Neurology Psychiatry
DX: F10.129 Alcohol abuse with intoxication, unspecified (principal); Y90.8 Blood alcohol level of 240 mg/100 ml or more; F32.A Depression, unspecified; R45.850 Homicidal ideations; F12.90 Cannabis use, unspecified, uncomplicated
CPT/HCPCS: 80053; 80306; 80307; 85025; 97150; 97165

== ENCOUNTER → 2022-09-07 15:04 | Outpatient (BNVA) | payer BC, SELFPAY | PROVIDERS: PCP Family Medicine; Visit Provider Nurse Practitioner Psychiatric/Mental Health | DX: Z79.899 Other long term (current) drug therapy (principal) | CPT/HCPCS: 80053; 80306 ==

== ENCOUNTER 2023-07-06 22:20 | Emergency (ER) | payer BC, MEDICAID, SELFPAY ==
[2023-07-06 22:24] VITALS: BP 175/88; PULSE 91; RESP 16; TEMP 36.5; O2SAT 94
--- NOTE | 2023-07-06 22:35 | ED_ITS ---
Documented by User: RONDA Perdue 07/07/23 00:34 HPI - Abdominal Pain 2 General: Chief Complaint: Abdominal Pain Stated Complaint: stomach pain n/v weeks Time Seen by Provider: 07/06/23 22:28 Source: patient and family Mode of arrival: ambulatory Limitations: no limitations History of Present Illness: Patient is a 37-year-old male who presents to ED today with complaint of acute on chronic epigastric pain. Patient states he has had epigastric pain for several several months. He is a chronic heavy alcohol user although admittedly has cut back over the past month. He states back in February his primary care provider diagnosed him with h. pylori via urea breath testing. Patient states he did undergo treatment for this. He does not think he was ever retested. Ultimately medications never helped his symptoms. He states he has been on a PPI and Carafate for several weeks without any improvement in his symptoms. He states he is scheduled for endoscopy in August. He denies bloody emesis or black or tarry stools. MD elicited complaint: abdominal pain Onset (ago): month(s) Pain Consistency: constant Location: Epigastric Severity: moderate Radiation: none Migration to: no migration Exacerbating factors: nothing Relieving factors: nothing Associated Symptoms: Reports nausea and vomiting; Denies change in bowel habits, chills, diarrhea, dysuria, fever(s), hematochezia, hematemesis and melena Review of Systems 2 Const: Denies: fever(s), chills, body aches, fatigue or malaise Card: Denies: chest pain Resp: Denies: dyspnea GI: Reports: abdominal pain, nausea and vomiting; Denies: hematemesis, diarrhea, change in bowel habits, hematochezia or melena : Denies: flank pain, difficulty urinating, dysuria, urinary frequency, urinary urgency or urinary hesitancy Musc: Denies: neck pain, back pain, extremity pain or joint pain Skin/Breast: Denies: rash Neuro: Denies: headache(s), numbness in extremities, weakness in extremities or sensory changes PFSH ED 2 PFSH: Medical History Other stimulant dependence, in remission Early remission, last use of methamphetamines 06/14/22 Cigarette nicotine dependence Chronic post-traumatic stress disorder Alcohol dependence, binge pattern Psychiatric care 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 Social History Smoking and tobacco/nicotine status: current every day tobacco/nicotine user Quit status (tobacco/nicotine): not considering quitting Alcohol intake: current Substance/Drug Use: current Adopted: No Caregiver/support person: No Lives independently: Yes Household members: family Housing: House Marital status: Single Number of children: 1 Number of grandchildren: 0 Highest education level completed: High School Graduate service: No Current occupational status: unemployed Current occupational exposures/hazards: No Pets and animals: Yes Pets & animals: dog(s) Pets & animal details: 3 dogs in house Do you think of yourself as: Straight/Heterosexual Current gender identity: Male Roberta/Jain: Religion [employer] Special roberta needs: No Agree to transfusion: Yes Physical Exam 2 Const: COMMON NORMALS: no acute distress, average body habitus, patient oriented x3, no limitations, alert and well nourished GENERAL APPEARANCE: c ooperative and appears older than stated age ORIENTATION/CONSCIOUSNESS: Yes awake, Yes oriented to person, Yes oriented to place and Yes oriented to time Eye: COMMON NORMALS: no scleral icterus Resp: COMMON NORMALS: normal respiratory effort and clear to auscultation bilaterally AUSCULTATION: clear to auscultation bilaterally Cardio: COMMON NORMALS: regular rate and regular rhythm RATE: regular rate RHYTHM: regular rhythm GI: COMMON NORMALS: Normal to inspection, nondistended, normoactive bowel sounds present, Soft to palpation, No hepatosplenomegaly present and no masses INSPECTION: Yes normal to inspection AUSCULTATION: Yes normoactive bowel sounds PALPATION: Yes Soft to palpation, Yes Tenderness to palpation present (GI) (epigastric), No Guarding due to palpation present (GI), No Rigid due to palpation and Yes No hepatosplenomegaly present : COMMON NORMALS: Yes no CVA tenderness BLADDER/KIDNEY EXAM: Yes no CVA tenderness Back/Pelvis: COMMON NORMALS: no CVA tenderness Extremity: GENERAL: Yes normal exam except as noted Neuro: JUSTIN COMA SCALE: document GCS findings Justin coma scale eye opening: Spontaneous [place] coma scale verbal response: Orientated [place] coma scale motor response: Obey commands [place] coma scale total score: 15 COMMON NORMALS: patient oriented x3, moves all extremities, no focal motor deficits and no sensory deficits noted SENSORIUM/ORIENTATION: Yes alert, Yes oriented to person, Yes oriented to place and Yes oriented to time Skin: COMMON NORMALS: no rashes or lesions noted GENERAL SKIN EXAM: no rashes or lesions noted Course 2 Vital Signs: Vital signs: Vital Signs Temperature 97.7 F 07/06/23 22:24 Pulse Rate 74 07/07/23 00:30 Respiratory Rate 16 07/07/23 00:30 Blood Pressure 138/97 07/07/23 00:30 Pulse Oximetry 95 07/07/23 00:30 Oxygen Delivery Me thod Room Air 07/06/23 22:24 MDM - Abdominal Pain Medical Decision Making Patient here for chronic epigastric pain. Patient did test positive for H. pylori via urea breath testing back in February. He underwent what sounds to be clarithromycin triple therapy and feels like symptoms did not improve. He is positive for H. pylori today based on serology. Certainly his symptoms could be secondary this OR to chronic gastritis as he is a daily drinker. Blood work here overall is unremarkable. He does not need emergent CT imaging. He has an endoscopy scheduled for August. Based on his failed previous therapy for H. pylori I will place him on bismuth quadruple therapy. Recommend follow-up with his primary care provider following completion. Differential Diagnosis Likely abdominal pain Medical Records I reviewed the patient's medical records. Lab Data I reviewed the patient's lab results. 07/06/23 22:42 07/06/23 22:42 Labs/Radiology: Laboratory Results WBC 8.16 10^3/uL (3.29-11.43) 07/06/23 22:42 RBC 5.25 10^6/uL (3.85-5.65) 07/06/23 22:42 Hgb 15.70 g/dL (11.27-16.99) 07/06/23 22:42 Hct 46.8 % (37-53) 07/06/23 22:42 MCV 89.1 fl (82-101) 07/06/23 22:42 MCH 29.9 pg (27-33) 07/06/23 22:42 MCHC 33.5 g/dL (30-55) 07/06/23 22:42 RDW 14.1 % (12.1-15.1) 07/06/23 22:42 Plt Count 321 10^3/cmm (157-399) 07/06/23 22:42 MPV 9.3 fL (7.4-10.4) 07/06/23 22:42 Neut % (Auto) 57.4 % 07/06/23 22:42 Lymph % (Auto) 26.3 % 07/06/23 22:42 Slope % (Auto) 13.1 % 07/06/23 22:42 Eos % (Auto) 2.3 % 07/06/23 22:42 Baso % (Auto) 0.7 % 07/06/23 22:42 Neut # (Auto) 4.67 10^3/uL (1.8-7.7) 07/06/23 22:42 Lymph # (Auto) 2.2 10^3/uL (0.8-4.8) 07/06/23 22:42 Slope # (Auto) 1.1 10^3/uL (0.2-0.9) H 07/06/23 22:42 Eos # (Auto) 0.2 10^3/uL (0.0-0.8) 07/06/23 22:42 Baso # (Auto) 0.1 10^3/uL (0.0-0.1) 07/06/23 22:42 Nucleated RBC % (auto) 0 % 07/06/23 22:42 Nucleated RBCs # 0.0 /100WBC 07/06/23 22:42 Sodium 139 mmol/L (136-145) 07/06/23 22:42 Potassium 4.1 mmol/L (3.5-5.1) 07/06/23 22:42 Chloride 101 mmol/L (98-107) 07/06/23 22:42 Carbon Dioxide 26 mmol/L (22-29) 07/06/23 22:42 Anion Gap 16.1 (5-19) 07/06/23 22:42 BUN 12 mg/dL (6-20) 07/06/23 22:42 Creatinine 0.8 mg/dL (0.7-1.2) 07/06/23 22:42 GFR Calculation 107.6 mL/min (90-130) 07/06/23 22:42 Glucose 91 mg/dL (65-115) 07/06/23 22:42 Calculated Osmolality 287 mOsm/kg (285-295) 07/06/23 22:42 Calcium 9.3 mg/dL (8.5-10.5) 07/06/23 22:42 Total Bilirubin 0.4 mg/dL (0.15-1.2) 07/06/23 22:42 AST 5 U/L (0-40) 07/06/23 22:42 ALT < 5 U/L (0-41) 07/06/23 22:42 Alkaline Phosphatase 103 U/L (40-130) 07/06/23 22:42 Total Protein 7.9 g/dL (6.6-8.7) 07/06/23 22:42 Albumin 4.8 g/dL (3.5-5.2) 07/06/23 22:42 Globulin 3.1 g/dL (1.3-4.6) 07/06/23 22:42 Lipase 21 U/L (13-60) 07/06/23 22:42 Ethyl Alcohol 119 mg/dL (0-10) H 07/06/23 22:42 H. pylori IgG Antibody Positive (Negative) H 07/06/23 22:42 No radiology studies performed this visit Discharge Plan Discharge Patient Disposition: Home Clinical Impression: Helicobacter pylori gastritis, Chronic alcohol abuse Condition: Stable Prescriptions: New bismuth subsalicylate 525 mg tablet 525 mg PO QID 14 Days Qty: 56 0RF Rx Instructions: do not exceed 8 doses in a 24 hour period tetracycline 500 mg capsule 500 mg PO QID 14 Days Qty: 56 0RF metronidazole 500 mg tablet 500 mg PO TID 14 Days Qty: 42 0RF Continued omeprazole 40 mg capsule,delayed release(DR/EC) 40 mg PO BID 14 Days Qty: 28 0RF No Action clonidine HCl 0.1 mg tablet 0.2 mg PO BID PRN (Reason: alcohol withdrawal) Rx Instructions: Take one tablet twice per day Vitamin B-1 (mononitrate) 100 mg tablet 100 mg PO .morning 30 Days Qty: 30 6RF Rx Instructions: Take one tablet every morning Discharge Orders: Discharge ED (Routine); Ordered 07/07/23 Ordered By: Fani Moody Referrals: Montana Escobar MD [Primary Care Provider] - Activity Restrictions/Additional Instructions: As we discussed I would like you to follow-up with your primary care provider following completion of therapy. 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 Social History Smoking and tobacco/nicotine status: current every day tobacco/nicotine user Quit status (tobacco/nicotine): not considering quitting Alcohol intake: current Substance/Drug Use: current Adopted: No Caregiver/support person: No Lives independently: Yes Household members: family Housing: House Marital status: Single Number of children: 1 Number of grandchildren: 0 Highest education level completed: High School Graduate service: No Current occupational status: unemployed Current occupational exposures/hazards: No Pets and animals: Yes Pets & animals: dog(s) Pets & animal details: 3 dogs in house Do you think of yourself as: Straight/Heterosexual Current gender identity: Male Roberta/Jain: Religion [employer] Special roberta needs: No Agree to transfusion: Yes Physical Exam 2 Neuro: JUSTIN COMA SCALE: document GCS findings Justin coma scale total score: 15 Course 2 Vital Signs: Vital signs: Vital Signs Temperature 97.7 F 07/06/23 22:24 Pulse Rate 74 07/07/23 00:30 Respiratory Rate 16 07/07/23 00:30 Blood Pressure 138/97 07/07/23 00:30 Pulse Oximetry 95 07/07/23 00:30 Oxygen Delivery Me thod Room Air 07/06/23 22:24 MDM - Abdominal Pain Lab Data 07/06/23 22:42 07/06/23 22:42 Labs/Radiology: Laboratory Results WBC 8.16 10^3/uL (3.29-11.43) 07/06/23 22:42 RBC 5.25 10^6/uL (3.85-5.65) 07/06/23 22:42 Hgb 15.70 g/dL (11.27-16.99) 07/06/23 22:42 Hct 46.8 % (37-53) 07/06/23 22:42 MCV 89.1 fl (82-101) 07/06/23 22:42 MCH 29.9 pg (27-33) 07/06/23 22:42 MCHC 33.5 g/dL (30-55) 07/06/23 22:42 RDW 14.1 % (12.1-15.1) 07/06/23 22:42 Plt Count 321 10^3/cmm (157-399) 07/06/23 22:42 MPV 9.3 fL (7.4-10.4) 07/06/23 22:42 Neut % (Auto) 57.4 % 07/06/23 22:42 Lymph % (Auto) 26.3 % 07/06/23 22:42 Slope % (Auto) 13.1 % 07/06/23 22:42 Eos % (Auto) 2.3 % 07/06/23 22:42 Baso % (Auto) 0.7 % 07/06/23 22:42 Neut # (Auto) 4.67 10^3/uL (1.8-7.7) 07/06/23 22:42 Lymph # (Auto) 2.2 10^3/uL (0.8-4.8) 07/06/23 22:42 Slope # (Auto) 1.1 10^3/uL (0.2-0.9) H 07/06/23 22:42 Eos # (Auto) 0.2 10^3/uL (0.0-0.8) 07/06/23 22:42 Baso # (Auto) 0.1 10^3/uL (0.0-0.1) 07/06/23 22:42 Nucleated RBC % (auto) 0 % 07/06/23 22:42 Nucleated RBCs # 0.0 /100WBC 07/06/23 22:42 Sodium 139 mmol/L (136-145) 07/06/23 22:42 Potassium 4.1 mmol/L (3.5-5.1) 07/06/23 22:42 Chloride 101 mmol/L (98-107) 07/06/23 22:42 Carbon Dioxide 26 mmol/L (22-29) 07/06/23 22:42 Anion Gap 16.1 (5-19) 07/06/23 22:42 BUN 12 mg/dL (6-20) 07/06/23 22:42 Creatinine 0.8 mg/dL (0.7-1.2) 07/06/23 22:42 GFR Calculation 107.6 mL/min (90-130) 07/06/23 22:42 Glucose 91 mg/dL (65-115) 07/06/23 22:42 Calculated Osmolality 287 mOsm/kg (285-295) 07/06/23 22:42 Calcium 9.3 mg/dL (8.5-10.5) 07/06/23 22:42 Total Bilirubin 0.4 mg/dL (0.15-1.2) 07/06/23 22:42 AST 5 U/L (0-40) 07/06/23 22:42 ALT < 5 U/L (0-41) 07/06/23 22:42 Alkaline Phosphatase 103 U/L (40-130) 07/06/23 22:42 Total Protein 7.9 g/dL (6.6-8.7) 07/06/23 22:42 Albumin 4.8 g/dL (3.5-5.2) 07/06/23 22:42 Globulin 3.1 g/dL (1.3-4.6) 07/06/23 22:42 Lipase 21 U/L (13-60) 07/06/23 22:42 Ethyl Alcohol 119 mg/dL (0-10) H 07/06/23 22:42 H. pylori IgG Antibody Positive (Negative) H 07/06/23 22:42 Discharge Plan Discharge Patient Disposition: Home Clinical Impression: Helicobacter pylori gastritis, Chronic alcohol abuse Condition: Stable Prescriptions: New bismuth subsalicylate 525 mg tablet 525 mg PO QID 14 Days Qty: 56 0RF Rx Instructions: do not exceed 8 doses in a 24 hour period tetracycline 500 mg capsule 500 mg PO QID 14 Days Qty: 56 0RF metronidazole 500 mg tablet 500 mg PO TID 14 Days Qty: 42 0RF Continued omeprazole 40 mg capsule,delayed release(DR/EC) 40 mg PO BID 14 Days Qty: 28 0RF No Action clonidine HCl 0.1 mg tablet 0.2 mg PO BID PRN (Reason: alcohol withdrawal) Rx Instructions: Take one tablet twice per day Vitamin B-1 (mononitrate) 100 mg tablet 100 mg PO .morning 30 Days Qty: 30 6RF Rx Instructions: Take one tablet every morning Discharge Orders: Discharge ED (Routine); Ordered 07/07/23 Ordered By: Fani Moody Referrals: Montana Escobar MD [Primary Care Provider] - Activity Restrictions/Additional Instructions: As we discussed I would like you to follow-up with your primary care provider following completion of therapy. Coding Level of Care Code ED Rice Dryer Mechanic for Delmis Thompson
[2023-07-06 22:46] LABS: Basophils # 0.1 10^3/uL (0.0-0.1); Basophils % 0.7 %; Eosinophils # 0.2 10^3/uL (0.0-0.8); Eosinophils % 2.3 %; Hematocrit 46.8 % (37-53); Lymphocytes # 2.2 10^3/uL (0.8-4.8); Lymphocytes % 26.3 %; Mean Corpuscular HGB Conc 33.5 g/dL (30-55); Mean Corpuscular Hemoglobin 29.9 pg (27-33); Mean Corpuscular Volume 89.1 fl (82-101); Mean Platelet Volume 9.3 fL (7.4-10.4); Monocytes # 1.1 10^3/uL (0.2-0.9); Monocytes % 13.1 %; Neutrophils # 4.67 10^3/uL (1.8-7.7); Neutrophils % 57.4 %; Nucleated Red Blood Cells % 0 %; Platelet Count 321 10^3/cmm (157-399); Red Blood Count 5.25 10^6/uL (3.85-5.65); Red Cell Distribution Width 14.1 % (12.1-15.1); White Blood Count 8.16 10^3/uL (3.29-11.43)
[2023-07-06] MEDS: lidocaine 2% viscous 15 ML, aluminum-mag hydrox-simethicon 30 ML, sucralfate oral liq 1 GM PO (22:52)
[2023-07-06 23:01] VITALS: BP 137/101; PULSE 76; RESP 18; O2SAT 96
[2023-07-06 23:03] LABS: Albumin Level 4.8 g/dL (3.5-5.2); Alcohol Level 119 mg/dL (0-10); Alkaline Phosphatase 103 U/L (40-130); Anion Gap 16.1 (5-19); Blood Urea Nitrogen 12 mg/dL (6-20); Calcium 9.3 mg/dL (8.5-10.5); Carbon Dioxide 26 mmol/L (22-29); Chloride 101 mmol/L (98-107); Creatinine Clr Calc Pharmacy 152.5296; Globulin 3.1 g/dL (1.3-4.6); Glomerular Filtration Rate 107.6 mL/min (90-130); Glucose 91 mg/dL (65-115); Lipase 21 U/L (13-60); Osmolality Calculated 287 mOsm/kg (285-295); Potassium 4.1 mmol/L (3.5-5.1); Sodium 139 mmol/L (136-145); Total Bilirubin 0.4 mg/dL (0.15-1.2); Total Protein 7.9 g/dL (6.6-8.7)
[2023-07-06 23:15] LABS: Alanine Aminotransferase < 5 U/L (0-41)
[2023-07-06 23:30] VITALS: BP 139/102; PULSE 77; RESP 18; O2SAT 95
[2023-07-06 23:37] VITALS: RESP 18; O2SAT 96
[2023-07-06] MEDS: ondansetron 2 mg/ML SDV 2 mL 4 MG IVP (23:37)
[2023-07-06] MEDS: morphine 4 mg/mL SDV 1 mL IVP (23:37)
[2023-07-06 23:39] LABS: H. Pylori IgG Antibody Positive (Negative)
[2023-07-07] VITALS: BP 138/97; PULSE 77; RESP 18; O2SAT 93
[2023-07-07 00:02] LABS: Aspartate Amino Transferase 5 U/L (0-40)
[2023-07-07 00:30] VITALS: BP 138/97; PULSE 74; RESP 16; O2SAT 95
== END 2023-07-07 00:31 | disposition home or self-care (01) ==
PROVIDERS: Internal Medicine; Emergency Provider Physician Assistant; PCP Family Medicine
DX: A04.8 Other specified bacterial intestinal infections (principal); F10.10 Alcohol abuse, uncomplicated; Y90.5 Blood alcohol level of 100-119 mg/100 ml
CPT/HCPCS: 80053; 80307; 83690; 85025; 86677; 96374; 96375; 99284; J2270; J2405

== ENCOUNTER → 2023-11-04 09:53 | Outpatient (BNVA) | payer BC, MEDICAID, SELFPAY | PROVIDERS: PCP Family Medicine; Visit Provider Surgery | DX: R10.9 Unspecified abdominal pain (principal); K21.9 Gastro-esophageal reflux disease without esophagitis; Z86.19 Personal history of other infectious and parasitic diseases; F12.20 Cannabis dependence, uncomplicated; R11.2 Nausea with vomiting, unspecified; K52.9 Noninfective gastroenteritis and colitis, unspecified | CPT/HCPCS: 74018 ==

== ENCOUNTER 2023-11-16 10:46 | Emergency (ER) | payer BC, MEDICAID, SELFPAY ==
[2023-11-16 10:53] VITALS: BP 134/98; PULSE 62; RESP 18; TEMP 36.6; O2SAT 95; BMI 23.7
--- NOTE | 2023-11-16 10:58 | W.ED.ANIMALB ---
HPI - Animal Bite General: Chief Complaint: Animal Bite Stated Complaint: Bit by bat Time Seen by Provider: 11/16/23 10:55 Source: patient Mode of arrival: ambulatory Limitations: no limitations History of Present Illness: 38-year-old male states that he was bit by a bat last night on his right thumb. He states it was in a fly trap that was caught and tried to release it does have an abrasion to his right thumb no bleeding patient states he is concerned about rabies Associated symptoms: Deny chills, fever(s) or headache(s) Review of Systems Const: Denies: fever(s), chills, body aches or change in appetite ENMT: Denies: throat pain or dental pain Card: Denies: chest pain Resp: Denies: dyspnea GI: Denies: abdominal pain, nausea, vomiting or diarrhea Musc: Denies: neck pain or back pain Skin/Breast: Denies: rash Neuro: Denies: headache(s) PFSH ED PFSH: Medical History Cannabis dependence with current use Alcohol use disorder, severe, dependence Other stimulant dependence, in remission Sustained remission, last use of methamphetamines 06/14/22 Cigarette nicotine dependence Chronic post-traumatic stress disorder Psychiatric care Family History Mother Cancer lung cancer Social History Smoking and tobacco/nicotine status: current every day 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) Quit status (tobacco/nicotine): not considering quitting Alcohol intake: current Substance/Drug Use: current Adopted: No Caregiver/support person: No Lives independently: Yes Household members: family Housing: House Marital status: Single Number of children: 1 Number of grandchildren: 0 Highest education level completed: High School Graduate service: No Current occupational status: unemployed Current occupational exposures/hazards: No Pets and animals: Yes Pets & animals: dog(s) Pets & animal details: 3 dogs in house Do you think of yourself as: Straight/Heterosexual Current gender identity: Male Roberta/Confucianist: [employer] Special roberta needs: No Agree to transfusion: Yes Physical Exam Const: COMMON NORMALS: no acute distress, patient oriented x3 and healthy appearing HENMT: COMMON NORMALS: normocephalic and atraumatic HEAD & SCALP: normocephalic and atraumatic Neck/C-Spine: COMMON NORMALS: full ROM and supple Chest: COMMONS NORMALS: normal inspection of the chest Resp: COMMON NORMALS: normal respiratory effort Extremity: COMMON NORMALS: full ROM NARRATIVE EXTREMITY EXAM: Abrasion noted right thumb no bleeding Neuro: COMMON NORMALS: patient oriented x3, moves all extremities and no focal motor deficits Psych: COMMON NORMALS: mental status grossly normal, Normal thought process present and cooperative THOUGHT PROCESS: Normal thought process present Skin: COMMON NORMALS: no rashes or lesions noted and no wounds GENERAL SKIN EXAM: no rashes or lesions noted Course Vital Signs: Vital signs: Vital Signs Temperature 97.9 F 11/16/23 10:53 Pulse Rate 62 11/16/23 10:53 Respiratory Rate 18 11/16/23 10:53 Blood Pressure 134/98 11/16/23 10:53 Pulse Oximetry 95 11/16/23 10:53 Oxygen Delivery Me thod Room Air 11/16/23 10:53 MDM - Animal Bite Medical Decision Making Patient presents here with a bite from a bat we will start him on the rabies prophylaxis he is stable for discharge follow-up with PCP return if worsening. No radiology studies performed this visit Discharge Plan Discharge Patient Disposition: Home Clinical Impression: Bite by animal Condition: Stable Prescriptions: No Action clonidine HCl 0.1 mg tablet 0.2 mg PO BID PRN (Reason: alcohol withdrawal) Rx Instructions: Take one tablet twice per day omeprazole 40 mg capsule,delayed release(DR/EC) 40 mg PO BID Qty: 60 3RF Rx Instructions: Take one capsule twice per day ondansetron 8 mg tablet,disintegrating 8 mg PO Q8H PRN (Reason: nausea and vomiting) Qty: 90 3RF Rx Instructions: Take one tablet every 8 hours as needed for nausea/vomiting pantoprazole [Protonix] 40 mg tablet,delayed release (DR/EC) 40 mg PO BID 42 Days Qty: 84 1RF Discharge Orders: Discharge ED (Routine); Ordered 11/16/23 Ordered By: Massimo Lowe Referrals: Montana Escobar MD [Primary Care Provider] - Discharge Activity: Resume usual activity Patient Instructions: Rabies (ED) Coding Level of Care Code ED Radiographer Mammographer for Chg Jay
[2023-11-16 11:35] VITALS: BP 118/77; PULSE 55; O2SAT 95
[2023-11-16] MEDS: rabies vaccine 2.5 unit SDV IM (11:39)
[2023-11-16 11:59] VITALS: BP 118/77; PULSE 55; RESP 18; TEMP 36.6; O2SAT 95
== END 2023-11-16 11:43 | disposition home or self-care (01) ==
PROVIDERS: Emergency Provider Emergency Medicine; PCP Family Medicine
DX: S60.371A Other superficial bite of right thumb, initial encounter (principal); W55.81XA Bitten by other mammals, initial encounter; Z72.0 Tobacco use; Z29.14 Encounter for prophylactic rabies immune globulin; Z20.3 Contact with and (suspected) exposure to rabies; Z23 Encounter for immunization
CPT/HCPCS: 90471; 90675; 99283

== ENCOUNTER 2023-11-30 07:22 | Outpatient (CLI) | payer BC, MEDICAID, SELFPAY ==
--- NOTE | 2023-11-30 07:30 | US_ITS ---
WS: [id number] RIGHT UPPER QUADRANT ULTRASOUND HISTORY: abdominal pain COMPARISON: None available. Liver: 15.7 cm in length. Normal size liver and echogenicity. No bile duct dilatation or mass. Portal Vein: Normal hepatopetal flow with monophasic waveform. Gallbladder: Normally distended gallbladder with no stones or wall thickening. CBD: 0.4 cm Pancreas: Poorly visualized. Right kidney: 11.5 cm in length. Normal size kidney. Mass with low-level echoes but through transmiss ion labeled mid kidney measures 3.2 x 3.1 x 2.6 cm. Low-level echoes are probably artifactual. No mary ann id mass. Aorta and IVC: Unremarkable abdominal aorta and IVC. No ascites. US/US gall bladder 37364 IMPRESSION: 1. Normal gallbladder. 2. Negative liver. 3. RIGHT renal cyst with a maximal diameter 3.2 cm.
== END 2023-11-30 07:23 | disposition home or self-care (01) ==
LOC: RAD 07:22
PROVIDERS: PCP Family Medicine; Visit Provider Surgery
DX: N28.1 Cyst of kidney, acquired (principal); R10.9 Unspecified abdominal pain
CPT/HCPCS: 76705

== ENCOUNTER 2023-12-02 11:30 | Oncology outpatient (recurring) (ONCR) | payer BC, MEDICAID, SELFPAY ==
[2023-11-21 14:38] VITALS: BP 116/83; PULSE 78; RESP 18; TEMP 36.8; O2SAT 98
[2023-11-21] MEDS: rabies vaccine 2.5 unit SDV IM (14:42)
[2023-11-25 10:29] VITALS: BP 146/97; PULSE 57; RESP 18; TEMP 36.5; O2SAT 96
[2023-11-25] MEDS: rabies vaccine 2.5 unit SDV IM (10:32)
[2023-12-02] MEDS: rabies vaccine 2.5 unit SDV IM (10:56)
[2023-12-02 11:00] VITALS: BP 144/68; PULSE 94; RESP 16; TEMP 36.4; O2SAT 98
== END 2023-12-10 23:55 | disposition home or self-care (01) ==
PROVIDERS: PCP Family Medicine; Visit Provider Emergency Medicine
DX: Z53.9 Procedure and treatment not carried out, unspecified reason (principal); Z20.3 Contact with and (suspected) exposure to rabies; Z23 Encounter for immunization; S61.051A Open bite of right thumb without damage to nail, initial encounter; W64.XXXA Exposure to other animate mechanical forces, initial encounter
CPT/HCPCS: 90471; 90675

== ENCOUNTER 2023-12-27 06:59 | Day surgery (SDC) | payer BC, MEDICAID, SELFPAY ==
[2023-12-27] VITALS (12 sets, daily range): BP systolic 122–161; BP diastolic 76–111; PULSE 53–69; RESP 14–20; TEMP 36.1–36.4; O2SAT 97–100; BMI 22.5
--- NOTE | 2023-12-27 07:25 | W.PM.OPSUD ---
Surgery/Procedure H&P Update DATE OF PROCEDURE: December 27, 2023 DATE H&P PERFORMED: 12/09/23 H&P UPDATE INFORMATION: I have reviewed H&P completed within last 30 days, I have examined patient prior to procedure and Changes to prior documentation as noted here CHANGES TO PREVIOUS DOCUMENTATION: HIDA scan was canceled and we will proceed with surgery. Patient is having significant pain and HIDA scan is scheduled rather far away in time. Risks and benefits of the procedure, especially the fact that there is a 20 to 30% chance that cholecystectomy does not relieve all of his symptoms with this diagnosis, were explained to the patient. He is understand the risks and wished to proceed. Due to the patient's history of alcoholism, if he appears to have any hepatic pathology, I will also perform a wedge liver biopsy. Additional risks of this procedure include possible additional bleeding and infection along with bile leak and elevation of liver enzymes. He is understanding of these risks and wishes to proceed. PLANNED PROCEDURE: Operation Date: 12/27/23 08:35 Proposed Procedures p Laparoscopic Cholecystectomy 70859, K80.50(Not Applicable) - Kyaw León DO
[2023-12-27] MEDS: sodium chloride 0.9% 1,000 ML 30 ML IV (07:36)
--- NOTE | 2023-12-27 08:05 | ANES.PREANE2 ---
Pre-Anesthetic Assessment Height/Weight: Height 6 ft 3 in Weight 180 lb Temp Pulse Resp BP Pulse Ox O2 Del Method 97.4 F L 68 16 142/111 98 Room Air 12/27/23 07:20 12/27/23 07:20 12/27/23 07:20 12/27/23 07:20 12/27/23 07:20 12/27/23 07:20 Preop Diagnosis: Cholecystitis Operation Date: 12/27/23 08:35 Proposed Procedures p Laparoscopic Cholecystectomy 84788, K80.50(Not Applicable) - Kyaw León, DO Was Beta Rosalio taken within 24 hours: N/A Was Clonidine taken within 24 hours: Yes Last intake: Intake Last Liquid Date 12/27/23 Last Liquid Time 01:30 Last Solid Date 12/26/23 Last Solid Time 23:45 Social Alcohol and Tobacco Exam alert, oriented x 3, clear to auscultation bilaterally and regular rate & rhythm Airway Submandibular: within normal limits Cervical ROM: within normal limits Mallampati: Class II Dentition: other (Edentulous) Anesthetic Plan ASA status: 3 Anesthesia: General Other: Patient has no prior issues with anesthesia NPO since midnight History of GERD, on omeprazole. Patient admits to mild symptoms this morning. Will plan on RSI Takes daily Zofran's 8 mg tablets for nausea Hypertension, on clonidine, taken last night Patient currently smokes nicotine and cannabis Chronic alcoholic, no transaminitis noted on labs Plan for GETA Medications/Allergies Home Medications Medication Instructions Recorded Confirmed Last Taken Type clonidine HCl 0.1 mg tablet 0.2 mg PO BID PRN alcohol 03/31/23 12/26/23 12/26/23 History withdrawal omeprazole 40 mg capsule,delayed 40 mg PO BID #60 caps 09/30/23 12/26/23 12/26/23 Rx release ondansetron 8 mg disintegrating 8 mg PO Q8H PRN nausea and 09/30/23 12/26/23 12/26/23 Rx tablet vomiting #90 tabs pantoprazole 40 mg tablet,delayed 40 mg PO BID 6 weeks #84 tabs 11/04/23 12/26/23 12/26/23 Rx release (Protonix) Allergies Allergy/AdvReac Type Severity Reaction Status Date / Time No Known Allergies Allergy Verified 12/09/23 11:51 Current Medications Generic Name Dose Route Start Last Admin Trade Name Freq PRN Reason Stop Dose Admin Sodium Chloride 1,000 mls @ 30 mls/hr 12/27/23 07:15 12/27/23 07:36 Sodium Chloride 0.9% IV 12/28/23 07:14 30 mls/hr .Q24H REID Administration PFSH Anesthesia Medical History Cannabis dependence with current use Alcohol use disorder, severe, dependence Other stimulant dependence, in remission Sustained remission, last use of methamphetamines 06/14/22 Cigarette nicotine dependence Chronic post-traumatic stress disorder Psychiatric care Family History Mother Cancer lung cancer Social History Smoking and tobacco/nicotine status: current every day 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) Quit status (tobacco/nicotine): not considering quitting Alcohol intake: current Substance/Drug Use: current Adopted: No Caregiver/support person: No Lives independently: Yes Household members: family Housing: House Marital status: Single Number of children: 1 Number of grandchildren: 0 Highest education level completed: High School Graduate service: No Current occupational status: unemployed Current occupational exposures/hazards: No Pets and animals: Yes Pets & animals: dog(s) Pets & animal details: 3 dogs in house Do you think of yourself as: Straight/Heterosexual Current gender identity: Male Roberta/Confucianism: [employer]ational [employer] Special roberta needs: No Agree to transfusion: Yes Data Anesthesia Cardiac Studies: No Data to Display
[2023-12-27] MEDS: ceFAZolin 2,000 mg SDV 2000 MG IVP (08:45)
--- NOTE | 2023-12-27 08:45 | P.OP_ITS ---
Operative Report Date of procedure: December 27, 2023 Surgeon: Kyaw León DO Procedure: Pre-op diagnosis: Recurrent pilonidal cyst Post-op diagnosis: Recurrent complex pilonidal cyst Procedure done: Cleft lift procedure (56700) with excision of recurrent complex pilonidal cyst (73783) Implants: 15 [place] Marcos drain Specimens removed/disposition: Elliptical skin and subcutaneous excision with pilonidal cyst Surgeon: Kyaw León DO Anesthesia: General and Local Estimated blood loss (mL): 5 Complications: None apparent Brief History: This is a very pleasant 17-year-old gentleman who presented to my office with a pilonidal cyst and history of pilonidal abscess. He completed a course of antibiotics. He desired excision. Cleft lift procedure with excision of pilonidal cyst is indicated. The risks and benefits were explained and documented. Procedure: Patient was wheeled operative room and general endotracheal intubation was achieved on the [facility] by the department of anesthesia. The patient was then placed prone on the OR table. Preoperatively the bilateral buttocks were pressed together to identify the area where the skin touches. This area was marked. The buttocks were then taped spread apart. The inner cleft was inspected prepped and draped in usual sterile fashion. A timeout was performed. All present were in agreement. Pilonidal sinus was located more to the right of the inner jany cleft. An elliptical excision measuring 4 cm in width was performed over the pilonidal sinus from just left midline and into the right buttock. Electrocautery was then used to cut the fascia and dissect down through the subcutaneous tissue and around the pilonidal sinus, removing the sinus en bloc. There were a couple of sinus tracts both superiorly and to the left that were included in the specimen. A fasciocutaneous flap was then created on the left side with Bovie cautery in cautery mode, going back 4 cm. The thickness of the flap was just over 1 cm. Hemostasis was achieved electrocautery. Tessy was then placed down into the midline of the excision. The subcutaneous tissue was then approximated using 2-0 Vicryl in a simple interrupted fashion. A 15 [place] Marcos drain was then placed into the wound coming out of the left buttock. This was sutured in place with 3-0 silk. The dermis was then approximated with interrupted 3-0 Vicryl. Skin was closed with running 4-0 Monocryl. Dermabond was applied. A drain sponge was applied around the drain. Tissue came together off midline and without tension. Patient tolerated procedure well.
[2023-12-27] MEDS: lidocaine-epi 2% PF 1:200,000 20 mL SDV XX (09:19)
--- NOTE | 2023-12-27 09:26 | P.OP_ITS ---
Operative Report Date of procedure: December 27, 2023 Pre-op diagnosis: Biliary colic History of alcoholism Post-op diagnosis: same Surgeon: Kyaw León DO Procedure: Procedure performed: Laparoscopic cholecystectomy Surgeon: Dr. Kyaw León DO Estimated blood loss: 5 mL Specimens: Gallbladder to pathology Complications: None apparent Description of procedure: Patient was wheeled into the operative room and placed on the OR table in a supine position. Abdomen was inspected prepped and draped in usual sterile fashion. Time-out was performed and all present were in agreement. A 15 blade scalp was used to make a stab incision in the left upper quadrant and intra- abdominal insufflation was achieved using a Veress needle. After localizing the tissue incisions were made and a 5 millimeter trocar was placed into the umbilicus as well as 2 in the right upper quadrant. A 12 millimeter trocar was placed in the epigastrium. Gallbladder was grasped and elevated. The triangle of Calot was carefully dissected using blunt dissection and electrocautery until the triangle of Calot clearly identified. The cystic duct was clipped proximal ly and double clipped distally. The duct was then ligated proximally. The cystic artery was doubly clipped and ligated. The gallbladder was then removed from the liver bed using electrocautery. The gallbladder was removed from the abdomen using an Endo-Catch bag through the epigastric incision. The liver bed was inspected and no bleeding was seen. The abdomen was irrigated and suctioned. All ports removed. Skin was washed and dried. Incisions were closed with 4-0 Monocryl in a subcuticular interrupted fashion. Skin glue was applied. Patient tolerated the procedure well.
[2023-12-27] MEDS: HYDROcodone-acetaminophen 7.5-325 mg Tablet 1 TAB PO (10:48)
[2023-12-27] MEDS: HYDROmorphone 1 mg/mL INJ 1 mL 0.5 MG IVP (10:50)
--- NOTE | 2023-12-27 11:23 | ANE.PACU2 ---
Inpatient post-anesthesia follow up: Airway intact: Yes Vital signs: Temperature 97 F Pulse Rate 62 Respiratory Rate 18 Blood Pressure 140/97 Pulse Oximetry 97 Oxygen Delivery Me thod Room Air Oxygen Flow Rate 6 Fraction of Inspir ed Oxygen Hydration adequate: Yes Nausea and vomiting: No Pain level: 1 Mental status: Baseline
== END 2023-12-27 11:23 | disposition home or self-care (01) ==
PROVIDERS: PCP Family Medicine; Visit Provider Surgery
PROC: 0FT44ZZ Resection of Gallbladder, Percutaneous Endoscopic Approach (ICD-10-PCS; CPT 47562; principal; 2023-12-27 08:35)
DX: K81.1 Chronic cholecystitis (principal); K21.9 Gastro-esophageal reflux disease without esophagitis; I10 Essential (primary) hypertension; F17.210 Nicotine dependence, cigarettes, uncomplicated
CPT/HCPCS: 47562; 88304; J0131; J0330; J0690; J1100; J1170; J1200; J1885; J2250; J2371; J2405; J2704; J3010; J3490; J7030

== ENCOUNTER 2024-02-08 06:53 | Day surgery (SDC) | payer BC, MEDICAID, SELFPAY ==
[2024-02-08 07:05] VITALS: BP 125/83; PULSE 63; RESP 17; TEMP 36.2; O2SAT 97
[2024-02-08 07:10] VITALS: BMI 21.9
[2024-02-08] MEDS: sodium chloride 0.9% 1,000 ML 30 ML IV (07:16)
--- NOTE | 2024-02-08 07:27 | ANES.PREANE2 ---
Pre-Anesthetic Assessment Height/Weight: Height 1.91 m Weight 79.379 kg Temp Pulse Resp BP Pulse Ox O2 Del Method 97.1 F L 63 17 125/83 97 Room Air 02/08/24 07:05 02/08/24 07:05 02/08/24 07:05 02/08/24 07:05 02/08/24 07:05 02/08/24 07:05 Operation Date: 02/08/24 08:00 Proposed Procedures p EGD- 19161, 30460 , K21.9, R10.9(Not Applicable) - Kyaw León DO s Colonoscopy(Not Applicable) - Kyaw León DO Was Beta Rosalio taken within 24 hours: N/A Was Clonidine taken within 24 hours: Yes Last intake: Intake Last Liquid Date 02/07/24 Last Liquid Time 23:30 Last Solid Date 02/06/24 Last Solid Time 23:50 Social Tobacco 1 pack(s) per day 15 years pack years uses cannabis Exam alert and oriented x 3 Airway Submandibular: within normal limits Cervical ROM: within normal limits Mallampati: Class II Dentition: other (poor) History/ROS No significant history except as noted Pulmonary Asthma (childhood; seasonal) CV/HEM Hypertension None reported Hepatic None reported GI Gastroesophageal Reflux Disease Metabolic None reported Musc/skel None reported Neuropsych None reported Anesthetic Plan ASA status: 2 Anesthesia: MAC Risk of > 500 ml blood loss (7ml/kg in children): No Medications/Allergies Home Medications Medication Instructions Recorded Confirmed Last Taken Type clonidine HCl 0.1 mg tablet 0.2 mg PO BID PRN alcohol 03/31/23 02/08/24 02/08/24 History withdrawal ondansetron 8 mg disintegrating 8 mg PO Q8H PRN nausea and 09/30/23 02/08/24 02/07/24 Rx tablet vomiting #90 tabs pantoprazole 40 mg tablet,delayed 40 mg PO BID 6 weeks #84 tabs 01/25/24 02/08/24 02/07/24 Rx release (Protonix) Allergies Allergy/AdvReac Type Severity Reaction Status Date / Time No Known Allergies Allergy Verified 02/06/24 10:30 Current Medications Generic Name Dose Route Start Last Admin Trade Name Freq PRN Reason Stop Dose Admin Sodium Chloride 1,000 mls @ 30 mls/hr 02/08/24 07:00 02/08/24 07:16 Sodium Chloride 0.9% IV 02/09/24 06:59 30 mls/hr .Q24H REID Administration PFSH Anesthesia Medical History Cannabis dependence with current use Alcohol use disorder, severe, dependence Other stimulant dependence, in remission Sustained remission, last use of methamphetamines 06/14/22 Cigarette nicotine dependence Chronic post-traumatic stress disorder Psychiatric care Surgical History (Updated 01/09/24 @ 15:21 by Kyaw León DO) History of esophagogastroduodenoscopy (EGD) [facility] Hx of adenoidectomy History of surgery on wrist right wrist Hx laparoscopic cholecystectomy 12/27/23 Dr León Family History Mother Cancer lung cancer Social History Smoking and tobacco/nicotine status: current every day 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) Quit status (tobacco/nicotine): not considering quitting Alcohol intake: current Substance/Drug Use: current Adopted: No Caregiver/support person: No Lives independently: Yes Household members: family Housing: House Marital status: Single Number of children: 1 Number of grandchildren: 0 Highest education level completed: High School Graduate service: No Current occupational status: unemployed Current occupational exposures/hazards: No Pets and animals: Yes Pets & animals: dog(s) Pets & animal details: 3 dogs in house Do you think of yourself as: Straight/Heterosexual Current gender identity: Male Roberta/Amish: [employer]ism [employer] Special roberta needs: No Agree to transfusion: Yes Data Anesthesia Cardiac Studies: No Data to Display
--- NOTE | 2024-02-08 08:04 | PM.HP ---
Providers/Chief Complaint Primary Care Provider: Joel Escobar Chief Complaint: K21.9, R10.9 History of Present Illness Lee Polanco is a 38 year old male Review of Systems General: Reports: 10 or more systems reviewed and unremarkable except in HPI and below Medications/Allergies Home Medications Medication Instructions Recorded Confirmed Last Taken Type clonidine HCl 0.1 mg tablet 0.2 mg PO BID PRN alcohol 03/31/23 02/08/24 02/08/24 History withdrawal ondansetron 8 mg disintegrating 8 mg PO Q8H PRN nausea and 09/30/23 02/08/24 02/07/24 Rx tablet vomiting #90 tabs pantoprazole 40 mg tablet,delayed 40 mg PO BID 6 weeks #84 tabs 01/25/24 02/08/24 02/07/24 Rx release (Protonix) Allergies Allergy/AdvReac Type Severity Reaction Status Date / Time No Known Allergies Allergy Verified 02/06/24 10:30 PFSH Acute PFSH: Medical History Cannabis dependence with current use Alcohol use disorder, severe, dependence Other stimulant dependence, in remission Sustained remission, last use of methamphetamines 06/14/22 Cigarette nicotine dependence Chronic post-traumatic stress disorder Psychiatric care Surgical History (Updated 01/09/24 @ 15:21 by Kyaw León DO) History of esophagogastroduodenoscopy (EGD) [facility] Hx of adenoidectomy History of surgery on wrist right wrist Hx laparoscopic cholecystectomy 12/27/23 Dr León Family History Mother Cancer lung cancer Social History Smoking and tobacco/nicotine status: current every day 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) Quit status (tobacco/nicotine): not considering quitting Alcohol intake: current Substance/Drug Use: current Adopted: No Caregiver/support person: No Lives independently: Yes Household members: family Housing: House Marital status: Single Number of children: 1 Number of grandchildren: 0 Highest education level completed: High School Graduate service: No Current occupational status: unemployed Current occupational exposures/hazards: No Pets and animals: Yes Pets & animals: dog(s) Pets & animal details: 3 dogs in house Do you think of yourself as: Straight/Heterosexual Current gender identity: Male 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 [employer] Special roberta needs: No Agree to transfusion: Yes Vitals/I&O/Wt Last Vital Signs Temp 97.1 F L 02/08/24 07:05 Pulse 63 02/08/24 07:05 Resp 17 02/08/24 07:05 BP 125/83 02/08/24 07:05 Pulse Ox 97 02/08/24 07:05 O2 Del Method Room Air 02/08/24 07:05 Weight last 48 hrs Weight 175 lb A&P Assessment and plan (1) GERD (gastroesophageal reflux disease): (2) Chronic diarrhea: (3) Abdominal pain: Plan EGD and colonoscopy with random biopsies Attestations Medical Necessity Statement*: Home Coding Level of Care Code Acute Code for Chg Fwd Diagnoses GERD (gastroesophageal reflux disease) K21.9 Chronic diarrhea K52.9 Abdominal pain R10.9
[2024-02-08 08:30] VITALS: BP 110/77; PULSE 54; RESP 16; TEMP 36.2; O2SAT 98
[2024-02-08 08:35] VITALS: BP 133/91; PULSE 63; RESP 18; O2SAT 98
--- NOTE | 2024-02-08 09:20 | ANE.PACU2 ---
Inpatient post-anesthesia follow up: Airway intact: Yes Vital signs: Temperature 97.2 F Pulse Rate 63 Respiratory Rate 18 Blood Pressure 133/91 Pulse Oximetry 98 Oxygen Delivery Me thod Room Air Oxygen Flow Rate Fraction of Inspir ed Oxygen Hydration adequate: Yes Nausea and vomiting: No Pain level: 1 Mental status: Baseline
[2024-02-08 12:41] LABS: C.Diff PCR (Lab) POSITIVE (Negative)
[2024-02-08 13:10] LABS: Clostridioides Difficile Toxin NEGATIVE (Negative)
== END 2024-02-08 09:20 | disposition home or self-care (01) ==
PROVIDERS: PCP Family Medicine; Visit Provider Surgery
PROC: 0DJ08ZZ Inspection of Upper Intestinal Tract, Via Natural or Artificial Opening Endoscopic (ICD-10-PCS; CPT 43235; principal; 2024-02-08 08:00)
PROC: 0DJD8ZZ Inspection of Lower Intestinal Tract, Via Natural or Artificial Opening Endoscopic (ICD-10-PCS; CPT 45378; 2024-02-08 08:00)
DX: K52.9 Noninfective gastroenteritis and colitis, unspecified (principal); K21.9 Gastro-esophageal reflux disease without esophagitis; D12.2 Benign neoplasm of ascending colon; D12.4 Benign neoplasm of descending colon; K29.50 Unspecified chronic gastritis without bleeding; F17.200 Nicotine dependence, unspecified, uncomplicated; I10 Essential (primary) hypertension; F17.210 Nicotine dependence, cigarettes, uncomplicated
CPT/HCPCS: 43239; 45380; 45385; 82274; 83630; 87045; 87177; 87209; 87324; 87427; 87449; 87493; 88305; 88342; J2704; J7030

== ENCOUNTER 2025-02-06 08:38 | Outpatient (CLI) | payer BC, MEDICAID, SELFPAY ==
--- NOTE | 2025-02-06 08:46 | FL_ITS ---
WS: [id number] Exam: FL barium swallow [id number] Date/Time of Exam: 02/06/2025 8:56 AM Reason For Exam: GASTRO-ESOPHAGEAL REFLUX DZ W/O ESOPHAGITIS Fluoroscopy time: 1min [id number] minutes # of spot films: Oropharyngeal phase of swallowing was normal. The esophagus is smooth in contour. No indication of esophageal stricture or mass. The esophagus is patent into the stomach. No obvious hiatal hernia or gastroesophageal reflux. Prominent visualized gastric mucosa. FL/FL barium swallow [id number] IMPRESSION: 1. Negative esophagram. 2. Prominent visualized gastric mucosa. Upper GI or endoscopic evaluation the s tomach might be considered for further work-up unless this has been recently pe rformed.
== END 2025-02-06 08:39 | disposition home or self-care (01) ==
PROVIDERS: PCP Family Medicine; Visit Provider Family Medicine
DX: K21.9 Gastro-esophageal reflux disease without esophagitis (principal)
CPT/HCPCS: 74220